=== PATIENT | female | born 1945 | race Caucasian/White ===

== ENCOUNTER 2021-09-06 13:49 | Emergency (ER) | payer MEDICARE, BC, SELFPAY ==
[2021-09-06 14:06] VITALS: BP 100/66; PULSE 114; RESP 18; TEMP 37.1; O2SAT 96; BMI 24.5
--- NOTE | 2021-09-06 14:34 | CT_ITS ---
Final Report Patient: CATE PALM Facility:?[facility] Patient ID:?[id number] Site Patient ID:?[id number]. Site :?[id number] Study:?CT Abdomen/Pelvis W/ISOVUE 370 65CC-09/06/2021 4:18:06 PM Ordering Physician:Ritika Love Final Report: INDICATION: Suspected diverticulitis. TECHNIQUE: CT abdomen and pelvis acquired with 65 cc Isovue 370 IV contrast. COMPARISON: None. FINDINGS: Lower chest: Mild bibasilar linear opacities likely atelectasis and/or scarring. coronary artery calcifications. Liver: Unremarkable. Normal in size and attenuation. No suspicious masses. Gallbladder and bile ducts: Status post cholecystectomy. There is intrahepatic biliary ductal dilatation. CBD measuring up to 11 millimeters. Gradual tapering of the CBD to the ampulla.. Pancreas: Unremarkable. No mass or inflammation. Prominence of the main pancreatic duct is noted. Spleen: Unremarkable. Normal in size. No masses. Adrenal glands: Unremarkable. No nodules. Kidneys: Unremarkable. No suspicious masses, stones, or hydronephrosis. GI tract: Severe diverticulosis of the sigmoid colon. No significant surrounding inflammatory changes to suspect diverticulitis. Normal appendix. Small hiatal hernia. Vasculature: Abdominal aorta is normal in caliber. Mesenteric arteries are patent. Lymph nodes: No lymphadenopathy. Peritoneum/Abdominal Wall: Unremarkable. No sign of mass or infiltration. No free air or significant free fluid. Pelvis: Unremarkable. Bones: Unremarkable for age. IMPRESSION: 1. Severe colonic diverticulosis without overt evidence of diverticulitis. 2. Mild increase in intrahepatic biliary ductal dilatation and mild prominence of the main pancreatic duct, increased since the prior exam. This may be related to reservoir effect in the setting of cholecystectomy, however given the mild increase since the prior exam recommend 3 to 6-month ultrasound of the abdomen to ensure stability. Please note that all CT scans at this facility use dose modulation, iterative reconstruction, and/or weight-based dosing when appropriate to reduce radiation dose to as low as reasonably achievable. Dictated by Aaliyah Platt MD @ 09/06/2021 5:19:23 PM (Electronic Signature)
[2021-09-06] MEDS: 0.9 % SODIUM CHLORIDE 1000 ml 1,000 ML 6000 ML IV (14:38)
--- NOTE | 2021-09-06 14:38 | ED.GENADULT ---
HPI - General Adult General Time Seen by Provider: 14:37 Date Seen: 09/06/21 Chief complaint: Abdominal Pain Stated complaint: Diverticulitis/fever/body pain Time Seen by Provider: 09/06/21 14:04 Source: patient Mode of arrival: ambulatory Limitations: no limitations History of Present Illness HPI narrative: Patient is a 76 year white female was seen yesterday after 3 day history of left-sided lower and lateral abdominal pain. The patient has had diverticulitis times about 3 in the past, she was given what sounds like oral Augmentin but continues to have discomfort in her left lateral quadrant and she felt chilled and not well this morning. She reports more pain in her abdomen in the left lateral side, and left lower quadrant. She states this feels similar to diverticulitis she had the past. No rigors, no chest pain, no shortness of breath, no leg swelling or edema, took a COVID test recently that was negative. No rigors as mention, no dysuria, or hematuria. Reports the pain is moderate in the left lateral and lower quadrant, and she notices some tenderness to palpation. Has not vomited Related Data Home Medications Medication Instructions Recorded Confirmed albuterol sulfate 90 mcg/actuation INHALATION 09/06/21 aerosol inhaler amoxicillin 875 mg-potassium tab 09/06/21 clavulanate 125 mg tablet lisinopril 10 tab 09/06/21 mg-hydrochlorothiazide 12.5 mg tablet multivitamin 1 tab PO DAILY 09/06/21 09/06/21 simvastatin 20 mg tablet mg 09/06/21 Previous Rx's Medication Instructions Recorded tramadol 100 mg tablet 100 mg PO Q6H PRN #20 tab 09/06/21 Allergies Allergy/AdvReac Type Severity Reaction Status Date / Time Sulfa (Sulfonamide AdvReac Intermediate Nausea Verified 09/06/21 14:03 Antibiotics) Review of Systems Status of ROS: Reports: 10 or more systems reviewed and unremarkable except as noted in History and below PFSH PFSH Social History Smoking Status: Never smoker Do you use any of these nicotine containing products: None Second hand tobacco smoke exposure: No How often do you have a drink containing alcohol: never AUDIT-C Alcohol total score: 0 Non-prescribed substance use: denies use service: No Exam Narrative: Exam Narrative: Objective: Vital signs unremarkable HEENT is unremarkable, no scleral icterus Chest is clear Pulses regular Abdomen: Bowel sounds present normoactive, mild left-sided voluntary guarding, no palpable masses, no rebound. Extremities without edema Skin is unremarkable warm and dry Neurologic is nonfocal in upper lower extremities Mental status appropriate Const: Vital Signs, click to edit/add: Vital Signs - 24 hr 09/06/21 14:06 09/06/21 15:42 09/06/21 16:30 Temperature 98.7 F Pulse Rate [Right Pulse Oximeter] 114 H 91 92 Respiratory Rate 18 18 18 Blood Pressure [Ri ght Upper Arm] 100/66 136/52 L 112/42 L Pulse Oximetry 96 96 100 09/06/21 17:48 Temperature Pulse Rate [Right Pulse Oximeter] 90 Respiratory Rate 20 Blood Pressure [Ri ght Upper Arm] 119/51 L Pulse Oximetry 98 Course Course Hospital Course: Because of the patient's concerning history of diverticulitis and her worsening symptoms failing outpatient treatment, would confirm with a CT scanner abdomen pelvis with IV contrast, would also give her IV fluid, IV pain medication for morphine, IV Zosyn. Will check laboratory studies as well Vital Signs Vital signs: Initial Vital Signs Temperature 98.7 F 09/06/21 14:06 Temperature Source Temporal Artery Scan 09/06/21 14:06 Pulse Rate 114 H 09/06/21 14:06 Respiratory Rate 18 09/06/21 14:06 Blood Pressure 100/66 09/06/21 14:06 Blood Pressure Mean 77 09/06/21 14:06 Blood Pressure Position Sitting 09/06/21 14:06 Pulse Oximetry 96 09/06/21 14:06 Oxygen Delivery Method 09/06/21 14:06 Vital Signs Temperature 98.7 F 09/06/21 14:06 Pulse Rate 114 H 09/06/21 14:06 Respiratory Rate 18 09/06/21 14:06 Blood Pressure 100/66 09/06/21 14:06 Pulse Oximetry 96 09/06/21 14:06 Temperature 98.7 F 09/06/21 14:06 Pulse Rate 90 09/06/21 17:48 Respiratory Rate 20 09/06/21 17:48 Blood Pressure 119/51 L 09/06/21 17:48 Pulse Oximetry 98 09/06/21 17:48 Medical Decision Making [facility] Narrative Medical decision making narrative: The patient has left-sided abdominal pain it is largely improved, I suspect this may be partially treated diverticulitis. But her white count is just slightly elevated, her CT looks okay other than slightly elevated or dilated pancreatic and gallbladder docs, which could be related to her cholecystectomy, but radiology recommended repeat about 6 months. Will have her complete her Augmentin, will fax in tramadol for her. Will have her update her regular doctor within the next day or 2. Light activity fluids, rest, return if problems or concerns or worsening thanks Lab Data Labs: Lab Results 09/06/21 09/06/21 Range/Units 14:30 14:30 WBC 12.10 H (4.50-11.00) K/uL RBC 4.02 (4.00-5.20) m/uL Hgb 13.7 (12.0-16.0) gm/dL Hct 40.0 (33.0-51.0) % MCV 100 (80-100) fL MCH 34 (26-34) pg MCHC 34 (32-36) gm/dL RDW Coeff of Yanni 11.7 (11.5-15.5) % Plt Count 237 (140-440) K/uL Neut % (Auto) 82.4 H (42.0-72.0) % Lymph % (Auto) 8.7 L (20-44) % Sanders % (Auto) 8.2 (0.0-11.0) % Eos % (Auto) 0.2 (0.0-7.0) % Baso % (Auto) 0.2 (0.0-3.0) % Neut # (Auto) 10.00 H (1.7-7.0) K/uL Lymph # (Auto) 1.10 (0.90-2.90) K/uL Sanders # (Auto) 1.00 H (0.00-0.90) K/UL Eos # (Auto) 0.00 (0.00-0.50) K/uL Baso # (Auto) 0.00 (0.00-0.30) K/uL Abs Immat Gran (auto) 0.04 (0.00-0.30) K/uL Sodium 131 L (135-149) mmol/L Potassium 3.7 (3.6-5.1) mmol/L Chloride 99 (96-114) mmol/L Carbon Dioxide 21 (20-32) mmol/L BUN 13 (7-30) mg/dL Creatinine 1.0 (0.5-1.5) mg/dL Estimated Creat Clear 37.26 Glucose 122 H (60-115) mg/dL Calcium 9.1 (8.4-10.6) mg/dL Total Bilirubin 1.5 (0.1-1.5) mg/dL Direct Bilirubin 0.3 (0.0-0.5) mg/dL AST 49 H (12-35) U/L ALT 33 (4-35) U/L Alkaline Phosphatase 89 (40-150) U/L C-Reactive Protein 2.8 H (0.5-1.0) mg/dL Total Protein 7.2 (6.0-8.3) g/dL Albumin 4.5 (3.3-5.0) g/dL Discharge Plan Discharge Clinical Impression: Abdominal pain Patient Disposition: Home w/ Parent or Adult Condition: Stable Additional Instructions: Patient is feeling a bit better, her CT scan looks reassuring, although there is some pancreatic duct dilatation the radiologist recommends repeat CT in about 6 months. Ultram as needed for discomfort finish the Augmentin, as she may have partially treated diverticulitis. She will update her primary care provider within the next day or 2, return to the ER sooner problems concerns difficulties. Prescriptions: New tramadol 100 mg tablet 100 mg PO Q6H PRN (Reason: pain) Qty: 20 0RF No Action simvastatin 20 mg tablet 0RF lisinopril-hydrochlorothiazide 10-12.5 mg tablet 0RF Label Comments: TAKE ONE TABLET BY MOUTH ONE TIME DAILY albuterol sulfate 90 mcg/actuation HFA aerosol inhaler INHALATION 0RF Label Comments: INHALE TWO PUFFS BY MOUTH EVERY FOUR HOURS NEEDED FOR WHEEZING amoxicillin-pot clavulanate 875-125 mg tablet 0RF Label Comments: TAKE ONE TABLET BY MOUTH TWICE DAILY multivitamin Tablet 1 tab PO DAILY 0RF Stand Alone Forms: [facility] Info Instructions
[2021-09-06 14:48] LABS: Basophils Percent Auto 0.2 % (0.0-3.0); Eosinophils Percent Auto 0.2 % (0.0-7.0); Hemoglobin* 13.7 gm/dL (12.0-16.0); Immature Granulocytes Abs Auto 0.04 K/uL (0.00-0.30); Lymphocytes Percent Auto 8.7 % (20-44); Mean Corpuscular HGB Conc 34 gm/dL (32-36); Mean Corpuscular Hemoglobin 34 pg (26-34); Mean Corpuscular Volume 100 fL (80-100); Monocytes Percent Auto 8.2 % (0.0-11.0); Neutrophils Percent Auto 82.4 % (42.0-72.0); Platelet Count* 237 K/uL (140-440); RDW Coefficient of Variation % 11.7 % (11.5-15.5); Red Blood Count 4.02 m/uL (4.00-5.20)
[2021-09-06 15:23] LABS: Albumin* 4.5 g/dL (3.3-5.0); Chloride* 99 mmol/L (96-114)
[2021-09-06 15:24] LABS: Potassium* 3.7 mmol/L (3.6-5.1); Sodium* 131 mmol/L (135-149)
[2021-09-06 15:26] LABS: Est. Creatinine Clearance* 37.26; Estimated Glomerular Filt Rate 58.02
[2021-09-06 15:27] LABS: Alkaline Phosphatase* 89 U/L (40-150); Aspartate Amino Transferase* 49 U/L (12-35); Bilirubin Direct* 0.3 mg/dL (0.0-0.5); Bilirubin Total* 1.5 mg/dL (0.1-1.5); Blood Urea Nitrogen* 13 mg/dL (7-30); Calcium* 9.1 mg/dL (8.4-10.6); Carbon Dioxide* 21 mmol/L (20-32); Glucose* 122 mg/dL (60-115); Total Protein* 7.2 g/dL (6.0-8.3)
[2021-09-06 15:29] LABS: C Reactive Protein* 2.8 mg/dL (0.5-1.0)
[2021-09-06] MEDS: ONDANSETRON 2 MG/ML inj 4 MG IVP (15:30)
[2021-09-06] MEDS: MORPHINE 2 MG/ML inj IVP (15:38)
[2021-09-06] MEDS: PIPERACILLIN/TAZOBACTAM 3.375 GM in 0.9 % SODIUM CHLORIDE Mini-bag 100 ML IVPB (15:38)
[2021-09-06 15:42] VITALS: BP 136/52; PULSE 91; RESP 18; O2SAT 96
[2021-09-06 15:43] LABS: Alanine Aminotransferase* 33 U/L (4-35)
[2021-09-06 16:30] VITALS: BP 112/42; PULSE 92; RESP 18; O2SAT 100
[2021-09-06 17:14] LABS: Slide Review Reflex No
[2021-09-06 17:48] VITALS: BP 119/51; PULSE 90; RESP 20; O2SAT 98
== END 2021-09-06 18:00 ==
PROVIDERS: Emergency Provider Family Medicine
DX: R10.32 Left lower quadrant pain (principal); Z87.19 Personal history of other diseases of the digestive system
CPT/HCPCS: 36415; 74177; 80048; 80076; 85025; 86140; 87040; 96365; 96375; 99284; J2270; J2405; J2543; J7030; Q9967

== ENCOUNTER 2022-04-18 12:06 | Outpatient (CLI) | payer MEDICARE, BC, SELFPAY ==
[2022-04-18 12:16] VITALS: BP 122/50; PULSE 87; RESP 16; O2SAT 98
[2022-04-18] MEDS: TETRACAINE 0.5% OPHTH 1 DROP EYE-BOTH ×3 (12:24→13:15)
[2022-04-18] MEDS: BRIMONIDINE TARTRATE 0.2% OPHTH 1 DROP EYE-BOTH ×2 (12:25→13:25)
--- NOTE | 2022-04-18 13:43 | P.OPTPRC_ITS ---
Procedure Note Date of procedure: 04/18/22 Will [facility] bill your pro fee for this procedure?: Yes Procedure Description: SURGEON: Sarah Guy MD PREOPERATIVE DIAGNOSIS: Posterior capsular opacity, right and left eye POSTOPERATIVE DIAGNOSIS: Posterior capsular opacity, right and left eye PROCEDURE: YAG laser capsulotomy, both eyes ANESTHESIA: Topical. ESTIMATED BLOOD LOSS: None PATHOLOGY SPECIMEN: None COMPLICATIONS: None INDICATIONS: See consult note for details. The risks, benefits and alternatives of the procedure were explained to the patient, who elected to proceed and signed informed consent to do so. PROCEDURE: The patient was brought to the pre-holding area where the right and left eyes were identified as the operative eyes. I placed my initials above the eyes. The following was given in both eyes: The patient received 2 sets of 1 drop of 0.5% tetracaine and 1 drop of 1% tropicamide. They also received 1 drop of 0.2% brimonidine. They received 1 drop of 0.5% tetracaine immediately prior to bringing them back for the procedure. The patient was then brought to the procedure room where the right and left eyes were again identified as the operative eyes. A YAG Garfield capsulotomy lens was placed on the right eye. The laser was administered using a total number of 10 shots with an energy of 2.4 mJ per shot for a total energy of 24 mJ. The patient tolerated the procedure well. A YAG Garfield capsulotomy lens was placed on the left eye. The laser was administered using a total number of 9 shots with an energy of 2.4 mJ per shot for a total energy of 22 mJ. The patient tolerated the procedure well. DISPOSITION: The patient was taken back to the pre-holding area and given 1 drop of 0.2% brimonidine in both eyes. They were discharged to home in stable condition. The patient [facility], including dramatic loss of vision, severe pain in the eye or eyebrow region, nausea, or vomiting. The patient was instructed to use the 0.2% brimonidine 1 drop 2 times a day in both eyes for 1 week. The patient will follow up in the clinic in 1-2 weeks. Surgeon: Sarah Guy MD
== END 2022-04-18 13:26 | disposition home or self-care (01) ==
LOC: EYE PRC 12:07
PROVIDERS: PCP Physician Assistant; Visit Provider Ophthalmology
DX: H26.9 Unspecified cataract (principal)
CPT/HCPCS: 66821; A9270

== ENCOUNTER 2023-03-24 09:31 | Emergency (ER) | payer MEDICARE, BC, SELFPAY ==
[2023-03-24 09:52] VITALS: BP 149/67; PULSE 64; RESP 17; TEMP 36.3; O2SAT 98; BMI 23.8
[2023-03-24 10:05] VITALS: O2SAT 97
--- NOTE | 2023-03-24 10:06 | CRLHL7_ITS ---
For Patients: As a result of the Century Cures Act, medical imaging exams and procedure reports are released immediately into your electronic medical record. You may view this report before your referring provider. If you have questions, please contact your health care provider. Indication: Shortness of breath Comparison: None available. Technique: PA and lateral views of the chest Findings: Hyperinflation and mildly increased interstitial markings without dense consolidation, effusion, or pneumothorax. The cardiac silhouette is mildly prominent. The bony thorax is grossly intact. Impression: Mild chronic interstitial changes without evidence of dense consolidation. Dictated by Juan Carlos Lomeli MD @ 03/24/2023 10:25:46 AM (Electronically Signed)
--- NOTE | 2023-03-24 10:07 | ED.GENADULT ---
HPI - General Adult General Chief complaint: Chest Pain Stated complaint: Chest pain Time Seen by Provider: 03/24/23 09:39 Source: patient Mode of arrival: ambulatory Limitations: no limitations History of Present Illness HPI narrative: Patient is a 78-year-old female coming in today complaining of chest pain. She states that approximately 5 hours ago she started having episodes of chest pain located under the left breast. Episodes come and go and lasts seconds at a time. She can not tell me how many episodes have occurred this morning. The pain is sharp. She is not short of breath or diaphoretic. She denies any fevers or chills. No recent illness. No nausea or vomiting. Pain is not associated with physical activity. She states that she had a piece of toast today and this did not seem to bother her pain, or make it come more frequently. Right now she is asymptomatic. States that the last episode of pain was perhaps 15 minutes ago. Patient was having palpitations and tachycardia-she is currently undergoing workup for that. She has a 30 day Holter monitor in place and she was recently started on metoprolol. She states that her pulse has been much better, staying in the 60s. She also has a history of her chronic cough which has been unchanged. Related Data Home Medications Medication Instructions Recorded Confirmed albuterol sulfate 90 mcg/actuation inhalation 09/06/21 03/20/22 aerosol inhaler multivitamin 1 tab PO DAILY 09/06/21 03/20/22 simvastatin 20 mg tablet mg 09/06/21 03/20/22 losartan 50 mg tablet 50 mg PO 03/20/22 03/20/22 metoprolol succinate 25 mg 25 mg PO DAILY 03/24/23 03/24/23 tablet,extended release 24 hr Allergies Allergy/AdvReac Type Severity Reaction Status Date / Time Sulfa (Sulfonamide AdvReac Intermediate Nausea Verified 03/20/22 10:16 Antibiotics) Review of Systems Status of ROS: Reports: 10 or more systems reviewed and unremarkable except as noted in History and below [facility] Medical History Diverticulitis ?K57.92 - Diverticulitis of intestine, part unspecified, without perforation or abscess without bleeding (ICD-10) Chronic cough ?R05.3 - Chronic cough (ICD-10) Polymyalgia rheumatica ?M35.3 - Polymyalgia rheumatica (ICD-10) Sleep apnea ?G47.30 - Sleep apnea, unspecified (ICD-10) Surgical History History of breast biopsy ?Z98.890 - Other specified postprocedural states (ICD-10) History of trigger finger ?Z87.39 - Personal history of other diseases of the musculoskeletal system and connective tissue (ICD-10) History of carpal tunnel release ?Z98.890 - Other specified postprocedural states (ICD-10) History of laparoscopic cholecystectomy ?Z90.49 - Acquired absence of other specified parts of digestive tract (ICD-10) Social History Smoking Status: Never smoker Do you use any of these nicotine containing products: None Second hand tobacco smoke exposure: No How often do you have a drink containing alcohol: never AUDIT-C Alcohol total score: 0 Non-prescribed substance use: denies use service: No Exam Narrative: Exam Narrative: Well-nourished well-developed patient in no acute distress. Alert and oriented. Answers questions appropriately. Mood and affect are appropriate. Thoughts are goal oriented and rational. No tangential or magical thinking noted. Patient speaks in full sentences without needing to catch her breath. She does not appear ill or toxic. HEENT: Normocephalic atraumatic. Pupils are equally round reactive to light. Extraocular muscles are intact. Conjunctivae are moist without any icterus noted. Moist mucous membranes. Neck is soft. Cardiovascular: Heart is regular rate and rhythm S1 and S2 are present without any murmurs. Lungs: Clear to auscultation bilaterally no wheezes rhonchi or rales are appreciated. Patient takes deep breaths without any discomfort. Abdomen: Soft and nontender nondistended with normal bowel sounds. No guarding or rebound. No masses or organomegaly appreciated. Extremities: Bilateral lower extremities are without edema. Normal DP and PT pulses. Skin: Well perfused without any obvious rashes. Const: Vital Signs, click to edit/add: Vital Signs - 24 hr 03/24/23 09:52 03/24/23 10:05 03/24/23 11:05 Temperature 97.3 F L Pulse Rate [Pulse Oximeter] 64 Respiratory Rate 17 Blood Pressure [Ri ght Upper Arm] 149/67 H 112/53 L Pulse Oximetry 98 97 Oxygen Delivery Me thod Room Air Room Air 03/24/23 11:32 Temperature Pulse Rate [Pulse Oximeter] 92 Respiratory Rate Blood Pressure [Ri ght Upper Arm] Pulse Oximetry 96 Oxygen Delivery Me thod Room Air Course Course ED Course: EKG, read by me, shows normal sinus rhythm with a pulse of 64. Chest x-ray, read by me, shows no acute pathology. Initial point of care troponin is within normal limits. Repeat troponin was unchanged. Remainder of lab work was unremarkable. Vital Signs Vital signs: Initial Vital Signs Temperature 97.3 F L 03/24/23 09:52 Temperature Source Temporal Artery Scan 03/24/23 09:52 Pulse Rate 64 03/24/23 09:52 Respiratory Rate 17 03/24/23 09:52 Blood Pressure 149/67 H 03/24/23 09:52 Blood Pressure Mean 94 03/24/23 09:52 Pulse Oximetry 98 03/24/23 09:52 Oxygen Delivery Method Room Air 03/24/23 09:52 Vital Signs Temperature 97.3 F L 03/24/23 09:52 Pulse Rate 64 03/24/23 09:52 Respiratory Rate 17 03/24/23 09:52 Blood Pressure 149/67 H 03/24/23 09:52 Pulse Oximetry 98 03/24/23 09:52 Oxygen Delivery Method Room Air 03/24/23 09:52 Temperature 97.3 F L 03/24/23 09:52 Pulse Rate 92 03/24/23 11:32 Respiratory Rate 17 03/24/23 09:52 Blood Pressure 112/53 L 03/24/23 11:05 Pulse Oximetry 96 03/24/23 11:32 Oxygen Delivery Method Room Air 03/24/23 11:32 Medical Decision Making MDM Narrative Medical decision making narrative: 78-year-old female with atypical chest pain of unclear etiology. We discussed symptomatic treatment reasons to return to the ER. Patient was in agreement and had no other questions. Lab Data Lab results reviewed: Yes I reviewed the patient's lab results Labs: Lab Results 03/24/23 03/24/23 03/24/23 Range/Units 10:06 10:12 11:30 WBC 9.62 (4.50-11.00) K/uL RBC 3.93 L (4.00-5.20) m/uL Hgb 13.7 (12.0-16.0) gm/dL Hct 41.8 (33.0-51.0) % MCV 106 H (80-100) fL MCH 35 H (26-34) pg MCHC 33 (32-36) gm/dL RDW Coeff of Yanni 12.1 (11.5-15.5) % Plt Count 274 (140-440) K/uL Neut % (Auto) 66.8 (42.0-72.0) % Lymph % (Auto) 20.2 (20-44) % Park % (Auto) 9.5 (0.0-11.0) % Eos % (Auto) 2.6 (0.0-7.0) % Baso % (Auto) 0.5 (0.0-3.0) % Neut # (Auto) 6.43 (1.7-7.0) K/uL Lymph # (Auto) 1.94 (0.90-2.90) K/uL Park # (Auto) 0.90 (0.00-0.90) K/UL Eos # (Auto) 0.25 (0.00-0.50) K/uL Baso # (Auto) 0.05 (0.00-0.30) K/uL Abs Immat Gran (auto) 0.04 (0.00-0.30) K/uL Imm/Tot Granulo (auto) 0.4 % Sodium 140 (135-149) mmol/L Potassium 4.2 (3.6-5.1) mmol/L Chloride 108 (96-114) mmol/L Carbon Dioxide 25 (20-32) mmol/L Anion Gap 7 (7-15) mEq/L BUN 19 (7-30) mg/dL Creatinine 1.0 (0.5-1.5) mg/dL Estimated Creat Clear 36.08 Estimated GFR 57 ml/min Glucose 105 (60-115) mg/dL Calcium 9.2 (8.4-10.6) mg/dL Troponin I < 0.01 L (0.01-0.04) ng/mL C-Reactive Protein < 0.5 L (0.5-1.0) mg/dL Lipase 188 (23-300) U/L POC Troponin I 0.00 L 0.00 L (0.01-0.04) ng/ml Imaging Data Chest x-ray: Attestation: I have reviewed the pertinent imaging results. Radiologist's impression: PA and lateral views of the chest Findings: Hyperinflation and mildly increased interstitial markings without dense consolidation, effusion, or pneumothorax. The cardiac silhouette is mildly prominent. The bony thorax is grossly intact. Impression: Mild chronic interstitial changes without evidence of dense consolidation. ECG Data Attestation: I personally reviewed and interpreted this ECG as follows: Discharge Plan Discharge Clinical Impression: Atypical chest pain Patient Disposition: Home, Self-Care Condition: Stable Additional Instructions: Is unclear what is causing her chest pain at this time. Does not appear to be related to your heart or lungs. All of your workup today was normal. If you feel that the pain is coming more frequently and lasting longer, return to the ER for re-evaluation. Otherwise, follow-up with your primary care provider as needed. Prescriptions: No Action losartan 50 mg tablet 50 mg PO simvastatin 20 mg tablet albuterol sulfate 90 mcg/actuation HFA aerosol inhaler INHALATION Patient Comments: INHALE TWO PUFFS BY MOUTH EVERY FOUR HOURS NEEDED FOR WHEEZING multivitamin Tablet 1 tab PO DAILY metoprolol succinate 25 mg tablet extended release 24 hr 25 mg PO DAILY Follow Up/Referrals: Sunday Garay PA-C [Primary Care Provider] - Stand Alone Forms: [facility] Info Instructions
[2023-03-24 10:18] LABS: Basophils Absolute Auto 0.05 K/uL (0.00-0.30); Basophils Percent Auto 0.5 % (0.0-3.0); Eosinophils Absolute Auto 0.25 K/uL (0.00-0.50); Eosinophils Percent Auto 2.6 % (0.0-7.0); Hematocrit 41.8 % (33.0-51.0); Hemoglobin* 13.7 gm/dL (12.0-16.0); Immature Granulocytes Abs Auto 0.04 K/uL (0.00-0.30); Immature Granulocytes Pct Auto 0.4 %; Lymphocytes Absolute Auto 1.94 K/uL (0.90-2.90); Lymphocytes Percent Auto 20.2 % (20-44); Mean Corpuscular HGB Conc 33 gm/dL (32-36); Mean Corpuscular Hemoglobin 35 pg (26-34); Mean Corpuscular Volume 106 fL (80-100); Monocytes Percent Auto 9.5 % (0.0-11.0); Neutrophils Absolute Auto 6.43 K/uL (1.7-7.0); Neutrophils Percent Auto 66.8 % (42.0-72.0); Platelet Count* 274 K/uL (140-440); RDW Coefficient of Variation % 12.1 % (11.5-15.5); Red Blood Count 3.93 m/uL (4.00-5.20); White Blood Count* 9.62 K/uL (4.50-11.00)
[2023-03-24 10:27] LABS: Slide Review Reflex No
[2023-03-24 10:31] LABS: Chloride* 108 mmol/L (96-114); Potassium* 4.2 mmol/L (3.6-5.1); Sodium* 140 mmol/L (135-149)
[2023-03-24 10:34] LABS: Anion Gap 7 mEq/L (7-15); Blood Urea Nitrogen* 19 mg/dL (7-30); Carbon Dioxide* 25 mmol/L (20-32); Est. Creatinine Clearance* 36.08; Estimated Glomerular Filt Rate 57 ml/min; Lipase* 188 U/L (23-300)
[2023-03-24 10:35] LABS: Calcium* 9.2 mg/dL (8.4-10.6); Glucose* 105 mg/dL (60-115)
[2023-03-24 11:01] LABS: C Reactive Protein* < 0.5 mg/dL (0.5-1.0); Troponin I* < 0.01 ng/mL (0.01-0.04)
[2023-03-24 11:05] VITALS: BP 112/53
[2023-03-24 11:32] VITALS: PULSE 92; O2SAT 96
== END 2023-03-24 11:59 | disposition home or self-care (01) ==
PROVIDERS: Emergency Provider Family Medicine; PCP Physician Assistant
DX: R07.9 Chest pain, unspecified (principal)
CPT/HCPCS: 36415; 71046; 80048; 83690; 84484; 85025; 86140; 93005; 94761; 99284; 99285

== ENCOUNTER 2023-09-19 09:36 | Emergency (ER) | payer MEDICARE, BC, SELFPAY ==
[2023-09-19 09:39] VITALS: BP 167/71; PULSE 65; RESP 18; TEMP 36.1; O2SAT 98; BMI 26.1
[2023-09-19 10:05] LABS: Basophils Absolute Auto 0.04 K/uL (0.00-0.30); Basophils Percent Auto 0.5 % (0.0-3.0); Eosinophils Absolute Auto 0.11 K/uL (0.00-0.50); Eosinophils Percent Auto 1.4 % (0.0-7.0); Hematocrit 43.1 % (33.0-51.0); Immature Granulocytes Abs Auto 0.03 K/uL (0.00-0.30); Immature Granulocytes Pct Auto 0.4 %; Lymphocytes Absolute Auto 1.94 K/uL (0.90-2.90); Lymphocytes Percent Auto 24.4 % (20-44); Mean Corpuscular HGB Conc 33 gm/dL (32-36); Mean Corpuscular Hemoglobin 34 pg (26-34); Mean Corpuscular Volume 103 fL (80-100); Monocytes Percent Auto 9.8 % (0.0-11.0); Neutrophils Absolute Auto 5.06 K/uL (1.7-7.0); Neutrophils Percent Auto 63.5 % (42.0-72.0); Platelet Count* 240 K/uL (140-440); RDW Coefficient of Variation % 12.2 % (11.5-15.5); Red Blood Count 4.17 m/uL (4.00-5.20); White Blood Count* 7.96 K/uL (4.50-11.00)
[2023-09-19 10:19] LABS: Chloride* 104 mmol/L (96-114); Potassium* 4.1 mmol/L (3.6-5.1); Sodium* 138 mmol/L (135-149)
[2023-09-19 10:20] LABS: Slide Review Reflex No
[2023-09-19 10:22] LABS: Anion Gap 8 mEq/L (7-15); Blood Urea Nitrogen* 20 mg/dL (7-30); Carbon Dioxide* 26 mmol/L (20-32); Est. Creatinine Clearance* 34.42; Estimated Glomerular Filt Rate 57 ml/min; Glucose* 114 mg/dL (60-115)
[2023-09-19 10:23] LABS: Calcium* 9.6 mg/dL (8.4-10.6)
[2023-09-19 10:35] LABS: Troponin I* < 0.01 ng/mL (0.01-0.04)
--- NOTE | 2023-09-19 10:52 | ED_ITS ---
HPI - General Adult General Date Seen: 09/19/23 Chief complaint: Chest Pain Stated complaint: Chest pain Time Seen by Provider: 09/19/23 10:51 History of Present Illness HPI narrative: 78-year-old female with past medical history of hypertension , PMR, sleep apnea, and presenting to the ER today with left-sided chest pain, worse with inspiration that began yesterday. She also notes that she has had about a 10 lb weight gain, dating back 3 or 4 months. Per medical record she was seen in the ER in March for chest pain. Workup showed normal CBC, normal BMP, negative troponin. Chest x-ray showed mild chronic interstitial changes. She reports that she has had symptoms of left upper chest pain that is only present with breathing or deep breathing, that began yesterday. She is not having any substernal pain. No pain through to her back or down her arm or up to her jaw. No other symptoms. No nausea. No palpitations. No dizziness. She is not short of breath. She has not had any recent coughing. No fever. No swelling in her legs. No recent travel or immobilization. Related Data Home Medications ?Medication ?Instructions ?Recorded ?Confirmed albuterol sulfate 90 mcg/actuation 1 puff inhalation Q4H PRN 09/06/21 09/19/23 aerosol inhaler multivitamin 1 tab PO DAILY 09/06/21 09/19/23 simvastatin 20 mg tablet 20 mg PO DAILY 09/06/21 09/19/23 losartan 50 mg tablet 50 mg PO DAILY 03/20/22 09/19/23 metoprolol succinate 25 mg 25 mg PO DAILY 03/24/23 09/19/23 tablet,extended release 24 hr Allergies Allergy/AdvReac Type Severity Reaction Status Date / Time Sulfa (Sulfonamide AdvReac Intermediate Nausea Verified 09/19/23 09:44 Antibiotics) [facility] Medical History Diverticulitis ?K57.92 - Diverticulitis of intestine, part unspecified, without perforation or abscess without bleeding (ICD-10) Chronic cough ?R05.3 - Chronic cough (ICD-10) Polymyalgia rheumatica ?M35.3 - Polymyalgia rheumatica (ICD-10) Sleep apnea ?G47.30 - Sleep apnea, unspecified (ICD-10) Surgical History History of breast biopsy ?Z98.890 - Other specified postprocedural states (ICD-10) History of trigger finger ?Z87.39 - Personal history of other diseases of the musculoskeletal system and connective tissue (ICD-10) History of carpal tunnel release ?Z98.890 - Other specified postprocedural states (ICD-10) History of laparoscopic cholecystectomy ?Z90.49 - Acquired absence of other specified parts of digestive tract (ICD- 10) Social History Smoking Status: Never smoker Do you use any of these nicotine containing products: None Second hand tobacco smoke exposure: No How often do you have a drink containing alcohol: never AUDIT-C Alcohol total score: 0 Non-prescribed substance use: denies use service: No Exam Narrative: Exam Narrative: Constitutional: Appears well-developed and well-nourished. Alert. Conversant. Non toxic. HENT: Head: Atraumatic. Nose: Nose normal. Mouth/Throat: Oral mucosa is clear and moist. no trismus. Pharynx normal. Tonsils symmetric. No tonsillar enlargement, erythema, or exudate. Eyes: Conjunctivae normal. EOM normal. Pupils equal, round, and reactive to light. No scleral icterus. Neck: Normal range of motion. Neck supple. No tracheal deviation present. No JVD Cardiovascular: Normal rate, regular rhythm. No gallop. No friction rub. No murmur heard. Symmetric radial and posterior tibial artery artery pulses Pulmonary/Chest: Effort normal. No stridor. No respiratory distress. No wheezes. No rales. No rhonchi . No tenderness. Abdominal: Soft. No distension. No mass. No tenderness. No rebound. No guarding. Musculoskeletal: RUE: Normal range of motion. No tenderness. No deformity LUE: Normal range of motion. No tenderness. No deformity RLE: Normal range of motion. No edema. No tenderness. No deformity LLE: Normal range of motion. No edema. No tenderness. No deformity Neurological: Alert and oriented to person, place, and time. Normal strength. CN II-VII intact. No sensory deficit. GCS eye subscore is 4. GCS verbal subscore is 5. GCS motor subscore is 6. Normal coordination Skin: Skin is warm and dry. No rash noted. No pallor. Normal capillary refill. Psychiatric: Normal mood. Normal affect. Const: Vital Signs, click to edit/add: Vital Signs - 24 hr 09/19/23 09:39 09/19/23 14:33 Temperature 96.9 F L Pulse Rate [Pulse Oximeter] 65 66 Respiratory Rate 18 17 Blood Pressure [Ri ght Upper Arm] 167/71 H 141/65 H Pulse Oximetry 98 99 Oxygen Delivery Me thod Room Air Room Air Course Vital Signs Vital signs: Initial Vital Signs Temperature 96.9 F L 09/19/23 09:39 Temperature Source Temporal Artery Scan 09/19/23 09:39 Pulse Rate 65 09/19/23 09:39 Respiratory Rate 18 09/19/23 09:39 Blood Pressure 167/71 H 09/19/23 09:39 Blood Pressure Mean 103 09/19/23 09:39 Blood Pressure Position Sitting 09/19/23 09:39 Pulse Oximetry 98 09/19/23 09:39 Oxygen Delivery Method Room Air 09/19/23 09:39 Vital Signs Temperature 96.9 F L 09/19/23 09:39 Pulse Rate 65 09/19/23 09:39 Respiratory Rate 18 09/19/23 09:39 Blood Pressure 167/71 H 09/19/23 09:39 Pulse Oximetry 98 09/19/23 09:39 Oxygen Delivery Method Room Air 09/19/23 09:39 Temperature 96.9 F L 09/19/23 09:39 Pulse Rate 66 09/19/23 14:33 Respiratory Rate 17 09/19/23 14:33 Blood Pressure 141/65 H 09/19/23 14:33 Pulse Oximetry 99 09/19/23 14:33 Oxygen Delivery Method Room Air 09/19/23 14:33 Medical Decision Making MDM Narrative Medical decision making narrative: This patient presents to the ER today for evaluation of chest pain[]. Differential was broad. No evidence of palpitations, syncope or other cardiac dysrhythmia. We considered possible ACS, however workup with EKG and troponin is negative.Given time since onset of symptoms, I do not think the patient needs to be admitted for further sets of enzymes. EKG shows no evidence for pericarditis. Clinical presentation not suggestive of myocarditis. Chest x-ray shows no evidence for pneumonia, pneumothorax, pulmonary edema, pleural effusion, rib fracture, cardiomegaly. Mediastinum is normal on the x-ray. The patient has no ripping or tearing pain through to the back and has symmetric pulses on exam, no other acute neuro findings so I doubt aortic dissection. Risk of radiation and contrast exposure would outweigh the benefit of CT angiogram. We considered PE for this patient with her pleuritic left lateral chest wall pain. Overall be low risk given her normal oxygen, absence of tachycardia, absence of leg swellings or signs of DVT, no recent travel. However she is not ?0? risk. Screening D-dimer is obtained and is normal. At this point the risk of chronic test arthropathy and radiation would outweigh the benefit of a CT PA. No wheezing or bronchospasm to suggest COPD/asthma. No signs of chest wall cellulitis, shingles, injury. She does have a history of lymph nodes affecting her left axilla with previous biopsy. No signs of any infection in that area and no palpable new masses to suggest abscess or lymphadenitis or hidradenitis. With reasonable clinical confidence, I think the patient is safe for outpatient follow up. Discussed return precautions. Questions answered. Patient voices comfort with the plan. Lab Data Labs: Lab Results 09/19/23 Range/Units 09:45 WBC 7.96 (4.50-11.00) K/uL RBC 4.17 (4.00-5.20) m/uL Hgb 14.0 (12.0-16.0) gm/dL Hct 43.1 (33.0-51.0) % MCV 103 H (80-100) fL MCH 34 (26-34) pg MCHC 33 (32-36) gm/dL RDW Coeff of Yanni 12.2 (11.5-15.5) % Plt Count 240 (140-440) K/uL Neut % (Auto) 63.5 (42.0-72.0) % Lymph % (Auto) 24.4 (20-44) % [place] % (Auto) 9.8 (0.0-11.0) % Eos % (Auto) 1.4 (0.0-7.0) % Baso % (Auto) 0.5 (0.0-3.0) % Neut # (Auto) 5.06 (1.7-7.0) K/uL Lymph # (Auto) 1.94 (0.90-2.90) K/uL [place] # (Auto) 0.80 (0.00-0.90) K/UL Eos # (Auto) 0.11 (0.00-0.50) K/uL Baso # (Auto) 0.04 (0.00-0.30) K/uL Abs Immat Gran (auto) 0.03 (0.00-0.30) K/uL Imm/Tot Granulo (auto) 0.4 % D-Dimer Quant (PE/DVT) 0.39 (0.00-0.50) ug/ml Sodium 138 (135-149) mmol/L Potassium 4.1 (3.6-5.1) mmol/L Chloride 104 (96-114) mmol/L Carbon Dioxide 26 (20-32) mmol/L Anion Gap 8 (7-15) mEq/L BUN 20 (7-30) mg/dL Creatinine 1.0 (0.5-1.5) mg/dL Estimated Creat Clear 34.42 Estimated GFR 57 ml/min Glucose 114 (60-115) mg/dL Calcium 9.6 (8.4-10.6) mg/dL Troponin I < 0.01 L (0.01-0.04) ng/mL Imaging Data Chest x-ray: Attestation: I have reviewed the pertinent imaging results. Radiologist's impression: Impression: No acute cardiopulmonary disease. ECG Data Interpretation: Normal sinus rhythm with short PA Rate: 80 PA: Use 106 QRS axis: Normal ST segment/T wave: No ST segment elevation or depression. QTc: 456 Discharge Plan Discharge Clinical Impression: Chest pain Patient Disposition: Home, Self-Care Condition: Stable Instructions: Chest Pain (DC) Additional Instructions: As we discussed, right now your workup looks good. The test for your heart and lungs look okay. However we do not know for sure what is causing her chest pain. Please monitor your symptoms carefully and if you have any worsening pain, or if you develop other symptoms such as heart palpitations, shortness of breath, cough, pain down your arm, please come back to the ER right away. If your pain is not completely improved within the next 2-3 days, please recheck with her doctor or come back to the ER for a recheck. Prescriptions: No Action losartan 50 mg tablet 50 mg PO DAILY simvastatin 20 mg tablet 20 mg PO DAILY albuterol sulfate 90 mcg/actuation HFA aerosol inhaler 1 puff INHALATION Q4H PRN Patient Comments: INHALE TWO PUFFS BY MOUTH EVERY FOUR HOURS NEEDED FOR WHEEZING multivitamin Tablet 1 tab PO DAILY metoprolol succinate 25 mg tablet extended release 24 hr 25 mg PO DAILY Follow Up/Referrals: Sunday Garay PA-C [Primary Care Provider] - Stand Alone Forms: [facility] Info Instructions
[2023-09-19 11:37] LABS: D Dimer Quantitative* 0.39 ug/ml (0.00-0.50)
--- NOTE | 2023-09-19 12:46 | CRLHL7_ITS ---
For Patients: As a result of the Century Cures Act, medical imaging exams and procedure reports are released immediately into your electronic medical record. You may view this report before your referring provider. If you have questions, please contact your health care provider. Indication: left upper chest pain Technique: PA and lateral views of the chest. Comparison: None. Findings: Normal cardiomediastinal silhouette. No focal consolidation, pleural effusions, or visualized pneumothorax. Left axillary surgical clips. Moderate multilevel degenerative changes of the visualized spine. Impression: No acute cardiopulmonary disease. Dictated by Yamil Leal MD @ 09/19/2023 1:17:13 PM (Electronically Signed)
[2023-09-19 14:33] VITALS: BP 141/65; PULSE 66; RESP 17; O2SAT 99
== END 2023-09-19 14:35 | disposition home or self-care (01) ==
PROVIDERS: Emergency Provider Emergency Medicine; PCP Physician Assistant
DX: R07.9 Chest pain, unspecified (principal)
CPT/HCPCS: 36415; 71046; 80048; 84484; 85025; 85379; 93005; 99283; 99284; 99285

== ENCOUNTER 2023-12-14 14:44 | Emergency (ER) | payer MEDICARE, BC, SELFPAY ==
[2023-12-14 14:49] VITALS: BP 165/66; PULSE 62; RESP 18; TEMP 36.7; O2SAT 98; BMI 24.9
--- NOTE | 2023-12-14 15:29 | ED_ITS ---
HPI - Nausea/Vomiting/Diarrhea General Chief complaint: Nausea/Vomiting Stated complaint: Covid+, nausea Time Seen by Provider: 12/14/23 15:17 History of Present Illness HPI Narrative: This 78-year-old female comes in reporting nausea with vomiting. She states that this started yesterday. She diagnosed herself with a positive COVID test also. She states that she did have fever yesterday but none today. She reports an occasional cough. Her primary symptom is nausea with episodes of vomiting when she attempts to take food or drink. She arrives here with normal vital signs. Related Data Home Medications ?Medication ?Instructions ?Recorded ?Confirmed albuterol sulfate 90 mcg/actuation 1 puff inhalation Q4H PRN 09/06/21 12/14/23 aerosol inhaler multivitamin 1 tab PO DAILY 09/06/21 09/19/23 losartan 50 mg tablet 50 mg PO DAILY 03/20/22 12/14/23 metoprolol succinate 25 mg 25 mg PO DAILY 03/24/23 12/14/23 tablet,extended release 24 hr rosuvastatin 20 mg tablet 20 mg PO DAILY 12/14/23 12/14/23 Previous Rx's ?Medication ?Instructions ?Recorded ondansetron 4 mg disintegrating 4 mg PO Q6H #15 tabs 12/14/23 tablet Allergies Allergy/AdvReac Type Severity Reaction Status Date / Time Sulfa (Sulfonamide AdvReac Intermediate Nausea Verified 09/19/23 09:44 Antibiotics) Review of Systems Status of ROS: Reports: 10 or more systems reviewed and unremarkable except as noted in History and below Narrative: Constitutional: No fevers, no weight gain or loss. Eyes: No discharge. No vision changes. HENT: No congestion, no sore throat, no ear pain. Cardiovascular: No chest pain, no palpitations. Respiratory: No shortness of breath, no wheezes, no cough. Gastrointestinal: No abdominal pain, no diarrhea. Nausea with vomiting as described above. Genitourinary: No dysuria, no hematuria. Musculoskeletal: Normal range of motion. Skin: No rashes, no pruritis. Neurological: No dizziness, weakness, sensory change, speech change. Endo/Heme/Allergies: No bruising or bleeding. No polydipsia. Pysch: no suicidality, no anxiety, no insomnia. All other systems reviewed and are negative. [facility] Medical History Diverticulitis ?K57.92 - Diverticulitis of intestine, part unspecified, without perforation or abscess without bleeding (ICD-10) Chronic cough ?R05.3 - Chronic cough (ICD-10) Polymyalgia rheumatica ?M35.3 - Polymyalgia rheumatica (ICD-10) Sleep apnea ?G47.30 - Sleep apnea, unspecified (ICD-10) Surgical History History of breast biopsy ?Z98.890 - Other specified postprocedural states (ICD-10) History of trigger finger ?Z87.39 - Personal history of other diseases of the musculoskeletal system and connective tissue (ICD-10) History of carpal tunnel release ?Z98.890 - Other specified postprocedural states (ICD-10) History of laparoscopic cholecystectomy ?Z90.49 - Acquired absence of other specified parts of digestive tract (ICD- 10) Social History Smoking Status: Never smoker Do you use any of these nicotine containing products: None Second hand tobacco smoke exposure: No How often do you have a drink containing alcohol: never AUDIT-C Alcohol total score: 0 Non-prescribed substance use: denies use service: No Exam Narrative: Exam Narrative: Constitutional: Well-developed, well-nourished, no acute distress. HEENT: Normocephalic, atraumatic. Neck: Normal range of motion. Nontender. Supple. Heart: Regular. No murmurs. Normal rate. Intact distal pulses. Lungs: Clear to auscultation. No chest discomfort. No wheezes, rhonchi, or rales. Abdomen: Normal bowel sounds. Nontender. No rebound tenderness. Genitalia: Deferred. Back: No midline tenderness. Normal range of motion. Extremities: Normal range of motion. No injury. Skin: Intact. No rash. Warm. No erythema or pallor. Neurologic: No altered sensation. No weakness. Alert and oriented. Psychiatric: No suicidality. No anxiety or depression. No insomnia. Nursing notes and vitals signs are reviewed. Const: Vital Signs, click to edit/add: Vital Signs - 24 hr 12/14/23 14:49 Temperature 98.0 F Pulse Rate [Right Pulse Oximeter] 62 Respiratory Rate 18 Blood Pressure [Ri ght Upper Arm] 165/66 H Pulse Oximetry 98 Oxygen Delivery Me thod Room Air Course Vital Signs Vital signs: Initial Vital Signs Temperature 98.0 F 12/14/23 14:49 Temperature Source Temporal Artery Scan 12/14/23 14:49 Pulse Rate 62 12/14/23 14:49 Pulse Rhythm Regular 12/14/23 14:49 Pulse Strength 3+ Normal 12/14/23 14:49 Respiratory Rate 18 12/14/23 14:49 Blood Pressure 165/66 H 12/14/23 14:49 Blood Pressure Mean 99 12/14/23 14:49 Blood Pressure Position Sitting 12/14/23 14:49 Pulse Oximetry 98 12/14/23 14:49 Oxygen Delivery Method Room Air 12/14/23 14:49 Vital Signs Temperature 98.0 F 12/14/23 14:49 Pulse Rate 62 12/14/23 14:49 Respiratory Rate 18 12/14/23 14:49 Blood Pressure 165/66 H 12/14/23 14:49 Pulse Oximetry 98 12/14/23 14:49 Oxygen Delivery Method Room Air 12/14/23 14:49 Temperature 98.0 F 12/14/23 14:49 Pulse Rate 62 12/14/23 14:49 Respiratory Rate 18 12/14/23 14:49 Blood Pressure 165/66 H 12/14/23 14:49 Pulse Oximetry 98 12/14/23 14:49 Oxygen Delivery Method Room Air 12/14/23 14:49 MDM - Nausea/Vomiting/Diarrhea MDM Narrative Medical decision making narrative: This patient had a home test positive for COVID and is reporting nausea with v omiting as her primary symptom. She arrives here with normal vital signs. I explained that there is a shortage now of IV fluids but seeing her vital signs being normal it is not mandatory to give her such fluids. She did receive an oral dose of Zofran. I did prescribe more of these tablets for her. This is a satisfactory encounter for her as she is simply hoping for something to help deal with her nausea symptoms. Discharge Plan Discharge Clinical Impression: COVID-19, Nausea & vomiting Patient Disposition: Home, Self-Care Condition: Stable Additional Instructions: Take medication as prescribed. Increase diet and fluids as tolerated. Follow up with MD or return if worsening. Prescriptions: New ondansetron 4 mg tablet,disintegrating 4 mg PO Q6H Qty: 15 0RF No Action losartan 50 mg tablet 50 mg PO DAILY albuterol sulfate 90 mcg/actuation HFA aerosol inhaler 1 puff INHALATION Q4H PRN Patient Comments: INHALE TWO PUFFS BY MOUTH EVERY FOUR HOURS NEEDED FOR WHEEZING multivitamin Tablet 1 tab PO DAILY metoprolol succinate 25 mg tablet extended release 24 hr 25 mg PO DAILY rosuvastatin 20 mg tablet 20 mg PO DAILY Follow Up/Referrals: Sunday Garay PA-C [Primary Care Provider] - Stand Alone Forms: [employer] Info Instructions
[2023-12-14] MEDS: ONDANSETRON ODT 4 MG TAB PO (15:42)
== END 2023-12-14 15:45 | disposition home or self-care (01) ==
LOC: ED 15:35
PROVIDERS: Emergency Provider Emergency Medicine Emergency Medical Services; PCP Physician Assistant
DX: U07.1 COVID-19 (principal); R11.2 Nausea with vomiting, unspecified
CPT/HCPCS: 96374; 99283; 99284; A9270

== ENCOUNTER 2024-08-02 22:15 | Emergency (ER) | payer MEDICARE, BC, SELFPAY ==
--- OUTSIDE RECORDS SUMMARY | 2024-07-01 09:30 | XMS_ITS | Encounter Summary ---
Author Organization [facility] Address [address] [place] [address] Care Team Providers Care Plush Cutter Name Role Phone Sunday Garay P.A.-C. Primary Care Provider Reason for Referral * Outpatient (Routine) - Authorized Specialty Diagnoses / Procedures Referred By Contac t Referred To Contact Diagnoses Pain Shoulder Left Procedures Large Joint Injection: L subacromial bursa Sunday Garay P.A.-C. [address] [place] [address] Phone: tel: fax: [facility] Referral ID Status Reason Start Date Expiration Date V isits Requested Visits Authorized [id number] Authorized 07/01/2024 10/01/2025 1 1 * Outpatient (Routine) - Authorized Specialty Diagnoses / Procedures Referred By Contac t Referred To Contact Family Medicine Sunday Garay P.A.-C. [address] [place] [address] Phone: tel: fax: [facility] Region Referral ID Status Reason Start Date Expiration Date V isits Requested Visits Authorized [id number] Authorized 07/01/2024 12/31/2025 1 1 * Physical Therapy (Routine) - Authorized Specialty Diagnoses / Procedures Referred By Contac t Referred To Contact Diagnoses Pain Shoulder Left Sunday Garay P.A.-C. [address] [place] [address] Phone: tel: fax: Referral ID Status Reason Start Date Expiration Date Visits Requested Visits Authorized [id number] Authorized Patient Preference 07/01/2024 12/31/2025 99 99 * Outpatient (Routine) - Closed Specialty Diagnoses / Procedures Referred By Abigail t Referred To Contact Diagnoses Pain Shoulder Left Procedures DX Shoulder Left 2+ Views Sunday Garay P.A.-C. [address] [place] [address] Phone: tel: fax: [facility] Region Referral ID Status Reason Start Date Expiration Date Visits Re quested Visits Authorized [id number] Closed 07/01/2024 10/01/2025 1 1 Reason for Visit * Reason Comments Shoulder Pain Left arm and shoulde r pain started a couple of weeks ago. Off and on. Tingling of right hand.Blood pressure running high at times. * Appointment Request (Routine) - Closed Specialty Diagnoses / Procedures Referred By Contac t Referred To Contact Family Medicine Referral ID Status Reason Start Date Expiration Date Visits Re quested Visits Authorized [id number] Closed 06/29/2024 09/29/2025 1 1 Encounter Details Date Type Department Care Team (Late st Contact Info) Description 07/01/2024 9:30 AM CDT Office Visit Department of Family Medicine, [facility], in [place], [place] [address] [place] [address] Sunday Garay P.A.-C. [address] [facility] [place] [phone] Hypertension Essential Primary (Primary Dx); Pain Shoulder Left Social History Tobacco Use Types Packs/Day Years Used Date Smoking Tobacco: Former Cigarettes 1 20 0 03/11/1966 - 03/11/1986 Smokeless Tobacco: Never Tobacco Cessation:Counseling Given: Not Answered Alcohol Use Standard Drinks/Week Comments Never 0 (1 standard drink = 0.6 oz pur e alcohol) [facility] Utilities Answer Date Recorded In the past 12 months has e electric, gas, oil, or water company threatened to shut off services in your home? No 12/02/2023 Humiliation, Afraid, Rape, and Kick questionnair e Answer Date Recorded Within the last year, have y ou been afraid of your partner or ex-partner? No 06/30/2022 Within the last year, have y ou been humiliated or emotionally abused in other ways by your partner or ex-partner? No Within the last year, have y ou been kicked, hit, slapped, or otherwise physically hurt by your partner or ex-partner? No 06/30/2022 Within the last year, have y ou been raped or forced to have any kind of sexual activity by your partner or ex-partner? No 06/30/2022 Social Connection and Isolat ion Panel [NHANES] Answer Date Recorded In a typical week, how many times do you talk on the phone with family, friends, or neighbors? More than three times a week 06/30/2022 How often do you get togethe r with friends or relatives? More than three times a week 06/30/2022 How often do you attend chur ch or cheondoism services? More than 4 times per year 06/30/2022 Do you belong to any clubs o r organizations such as adventist groups, unions, fraternal or athletic groups, or school groups? No 06/30/2022 Attends Club or Organization Meetings Not on tim e 06/30/2022 Are you , , di vorced, , never , or living with a partner? 06/30/2022 AUDIT-C Answer Date Recorded Q1: How often do you have a drink containing alc ohol? Never 06/30/2022 Average Number of Drinks Not on file 023 Frequency of Binge Drinking Not on file 06/10 Overall Financial Resource Strain (CARDIA) Answe r Date Recorded How hard is it for you to pa y for the very basics like food, housing, medical care, and heating? Not very hard 06/30/2022 PHQ-2 Answer Date Recorded PHQ-2 Score 1 06/30/2024 [facility] - Occupational Stress Questionnaire Answer Date Recorded Do you feel stress - tense, restless, nervous, or anxious, or unable to sleep at night because your mind is troubled all the time - these days? Only a little 06/30/2022 Exercise Vital Sign Answer Date Recorde d On average, how many days pe r week do you engage in moderate to strenuous exercise (like a brisk walk)? 6 days 07/17/2023 On average, how many minutes do you engage in exercise at this level? 60 min 07/17/2023 Hunger Vital Sign Answer Date Recorded Within the past 12 months, y ou worried that your food would run out before you got the money to buy more. Never true 12/02/19 24 Within the past 12 months, t he food you bought just didn't last and you didn't have money to get more. Never true 12/02/2023 PRAPARE - Transportation Answer Date Re corded In the past 12 months, has l ack of transportation kept you from medical appointments or from getting medications? No 11/10 In the past 12 months, has l ack of transportation kept you from meetings, work, or from getting things needed for daily living? No 12/02/2023 Nutrition Answer Date Recorded On average, how many serving s of fruits and vegetables do you eat per day (serving size is equal to 1 cup or approximately the size of a tennis ball)? 3-5 07/17/2023 Dental Answer Date Recorded Dental: Regular Dentist Yes 05/02/19 21 Employment Answer Date Recorded Employment status Retired 07/17/2023 Housing Stability Answer Date Recorded What is your living situation today? I have a [facility] place to live 12/02/2023 Education Answer Date Recorded What is the highest level of school you have completed or the highest degree you have received? Some college, no degree 11/03/2018 Comments No Sex and Gender Information Value Date Recorded Sex Assigned at Female 10/24/2019 3:29 PM CDT Legal Sex Female 10:41 PM [employer] Gender Identity Female 10/09/2017 9:13 AM CDT Sexual Orientation Straight 10/09/2017 9: 13 AM CDT documented as of this encounter Last Filed Vital Signs Vital Sign Reading Time Taken Comments Blood Pressure 146/71 07/01/2024 9:22 AM CDT Pulse 76 07/01/2024 9:22 AM CDT Temperature 36.1 C (97 F) 07/01/2024 9:16 AM CDT Respiratory Rate 16 07/01/2024 9:16 AM CDT Oxygen Saturation - - Inhaled Oxygen Concentration - - Weight 63.7 kg (140 lb 6.9 oz) 07/01/2024 9:16 A M CDT Height 156.4 cm (5' 1.58) 07/01/2024 9:16 AM CD T Body Mass Index 26.04 07/01/2024 9:16 AM CDT documented in this encounter Progress Notes * Sunday Garay P.A.-C. - 07/01/2024 9:30 AM CDTAssociated Order(s): Large Joint Injection: L subacromial bursa Post-Procedure Diagnose(s): Pain Shoulder Left SUBJECTIVE CHIEF COMPLAINT / REASON FOR VISIT Bhargavi Montoya is a 79 y.o. female who presents for evaluation of Shoulder Pain (Left arm and shoulder pain started a couple of weeks ago. Off and on. Tingling of right hand./Blood pressure runninghigh at times. ). HISTORY OF PRESENT ILLNESS Bhargavi presents today with a couple different issues. She has had some left shoulder pain that has bothered her for quite some time. She does not recall any specific injury but she is frustrated by it. She also has a history of hypertension. This is previously been pretty well controlled she has had some side effects from lisinopril and hydrochlorothiazide. She is currently taking losartan 50 mg a day and tolerating it well. She has a history of coronary artery disease on a CT scan but this wasmoderate. Problem List[1] OBJECTIVE Vitals: 07/01/24 0916 07/01/24 0922 BP: 148/74 146/71 BP Location: Left arm Left arm Patient Position: Sitting Sitting Cuff Size: Regular Regular Pulse: 70 76 Resp: 16 Temp: 36.1 ??C TempSrc: Temporal Weight: 63.7 kg Height: 156.4 cm Body mass index is 26.04 kg/m??. PHYSICAL EXAMINATION In general she appears in no acute distress Left shoulder: She can abduct and flex her shoulder to 90?? but has some discomfort holding it there versus resistance. She has no palpable abnormalities within her axilla. She does have a history ofsome axillary lymphadenopathy but none that seem to be significantly increasing. Trores sign was markedly positive. Neer sign was also positive ASSESSMENT / PLAN #1 Hypertension Essential Primary We talked about her blood pressure. She showed me her readings from home which are suboptimally controlled. I am going to have her double the dose of losartan to 100 mg daily. I am going to see her back in a month and will recheck it at that time in the meantime she will continue checking it at home #2 Pain Shoulder Left We talked about different options for this. I am going to do an x-ray today I would like her to do some physical therapy and I am going to inject her shoulder today. We did talk about more aggressivetreatment doing an MRI and considering orthopedic surgery but for now will continue with conservative management and hopefully she will get some improvement with physical therapy and an injection. Please see separate procedure note Shoulder site - L subacromial bursa Performed by: Sunday Garay, P.A.-C. Authorized by: Sunday Garay, P.A.-C. PROCEDURE DETAILS Procedure Location shoulder Shoulder site: L subacromial bursa Patient position: seated Procedural approach: posterior Needle gauge: 22 G, length: 1 1/2 in Procedural Medication The following medications were administered at the target site(s) Local anesthetic: 4 mL lidocaine 10 mg/mL (1 %) Corticosteroid: 40 mg triamcinolone acetonide 40 mg/mL CONSENT Consent obtained: verbal Consent given by: patient The benefits, risks and alternatives to the procedure and the potential need for sedation or anesthesia as well as the names, roles, and responsibilities of healthcare team members performing significant interventional tasks were discussed with the patient and/or decision maker. UNIVERSAL PROTOCOL All relevant documentation and testing were reviewed and available. All required blood products, implants, devices and or special equipment were made available as applicable. Pre-procedure verification was conducted and the correct site was marked if required. A fire risk and smoke assessment were done as applicable. The procedural time-out to verify correct patient, correct side/site, and procedure was conducted prior to performing the procedure and confirmed in a procedural pause. PRE-PROCEDURE DETAILS Procedure purpose: therapeutic Appropriate hand hygiene, gown, cap, mask, protective eyewear, sterile gloves, skin preparation, sterile drape, and strict aseptic technique were utilized as applicable for the procedure. Site preparation: alcohol and povidone-iodine POST-PROCEDURE DETAILS Procedure completed successfully: yes Complications: no apparent complications Sunday Garay P.A.-C. [1] Patient Active Problem List Diagnosis ??? Hypertension Essential Primary ??? Osteopenia ??? Hyperlipidemia ??? Apnea Sleep Obstructive ??? Lymphadenopathy Axillary ??? Regurgitation Aortic ??? Primary Central Sleep Apnea ??? Diverticulosis documented in this encounter Plan of Treatment Upcoming Encounters Date Type Department Care Team (Late st Contact Info) Description 08/06/2024 1:30 PM CDT Office Visit Department of Family Medicine, [facility], in [address] [address] Sunday Garay P.A.-C. [address] [place] [phone] 09/15/2024 10:45 AM CDT Office Visit Department of Family Medicine, [facility], in [address] [phone] Rosalba Serna M.D. [address] [place] [phone] 12/10/2024 8:40 AM CDT Appointment Department of Laboratory Medicine in [address] [phone] Sunday Garay P.A.-C. [address] [place] [address] 12/10/2024 9:00 AM CDT Appointment Department of Radiology in [address] [phone] Sunday Garay P.A.-C. [address] [place] [phone] 12/11/2024 9:30 AM CDT Office Visit Department of Family Medicine, [facility], in [address] [address] Sunday Garay P.A.-C. [address] [place] [phone] Scheduled Referrals Name Type Priority Associated Diagnoses Orde r Schedule Family Medicine office visit (clinic) Outpatient Referral Routine Expected: 08/02/2024, Expires: 09/30/2025 documented as of this encounter Procedures Procedure Name Priority Date/Time Associated Diagnosis Comments TN ARTHCS ASP/INJ MJR JT WO US Routine 07/01/2024 9:30 AM CDT Pain Shoulder Left documented in this encounter Results * DX Shoulder Left 2+ Views (07/01/2024 10:38 AM CDT) Anatomical Region Laterality Modality Upper Extremity, Shoulder, M usculoskeletal RST LOS, Musculoskeletal ARZ LOS, Muskuloskeletal FLA LOS Left Digit al Radiography Impressions 07/01/2024 11:13 AM CDT Left shoulder: Chronic glenohumeral joint degenerative changes with marked joint space narrowing. Mild acromioclavicular joint degenerative changes. Negative for acute fracture or dislocation. Postsurgical clips in the axilla. Imaged portions of the left lung is unremarkable. Narrative 07/01/2024 11:13 AM CDT EXAM: DX SHOULDER LEFT 2+ VIEWS Procedure Note Forest Saha M.B., Josh Mcelroy - 07/01/2024 EXAM: DX SHOULDER LEFT 2+ VIEWS IMPRESSION: Left shoulder: Chronic glenohumeral joint degenerative changes with markedjoint space narrowing. Mild acromioclavicular joint degenerative changes.Negative for acute fracture or dislocation. Postsurgical clips in theaxilla. Imaged portions of the left lung is unremarkable. us Sunday Garay P.A.-C. IMG DIAGNOSTIC IMAGING PROCEDURES Final Result * TN ARTHCS ASP/INJ MJR JT WO US (07/01/2024 9:30 AM CDT) Narrative MMODAL - 07/01/2024 9:30 AM CDT Sunday Garay P.A.-C. 07/01/2024 11:56 AM Shoulder site - L subacromial bursa Performed by: Sunday Garay P.A.-C. Authorized by: Sunday Garay P.A.-C. PROCEDURE DETAILS Procedure Location shoulder Shoulder site: L subacromial bursa Patient position: seated Procedural approach: posterior Needle gauge: 22 G, length: 1 1/2 in Procedural Medication The following medications were administered at the target site(s) Local anesthetic: 4 mL lidocaine 10 mg/mL (1 %) Corticosteroid: 40 mg triamcinolone acetonide 40 mg/mL CONSENT Consent obtained: verbal Consent given by: patient The benefits, risks and alternatives to the procedure and the potential need for sedation or anesthesia as well as the names, roles, and responsibilities of healthcare team members performing significant interventional tasks were discussed with the patient and/or decision maker. UNIVERSAL PROTOCOL All relevant documentation and testing were reviewed and available. All required blood products, implants, devices and or special equipment were made available as applicable. Pre-procedure verification was conducted and the correct site was marked if required. A fire risk and smoke assessment were done as applicable. The procedural time-out to verify correct patient, correct side/site, and procedure was conducted prior to performing the procedure and confirmed in a procedural pause. PRE-PROCEDURE DETAILS Procedure purpose: therapeutic Appropriate hand hygiene, gown, cap, mask, protective eyewear, sterile gloves, skin preparation, sterile drape, and strict aseptic technique were utilized as applicable for the procedure. Site preparation: alcohol and povidone-iodine POST-PROCEDURE DETAILS Procedure completed successfully: yes Complications: no apparent complications Sunday Garay P.A.-C. PROCEDURE/MINOR SURGIC AL ORDERABLES Final Result [facility] NA documented in this encounter Visit Diagnoses Diagnosis Hypertension Essential Primary- Primary Pain Shoulder Left Pain Shoulder Left documented in this encounter Administered Medications Inactive Administered Medications - up to 3 most recent administrations Medication Order MAR Action Action Date Dose Rate Site lidocaine 10 mg/mL (1 %) injection 4 mL (Xylocaine) 4 mL, injection, One-Time Injection, Starting on Sat07/01/24 at 0930, For 1 doseIndications:Pain Shoulder Left Given 07/01/2024 9:30 AM CDT 4 mL triamcinolone acetonide injection 40 mg (Kenalog-40) 40 mg, intra-articular, One-Time Injection, Starting on Sat07/01/24 at 0930, For 1 doseIndications:Pain Shoulder Left Given 07/01/2024 9:30 AM CDT 40 mg documented in this encounter Additional Health Concerns Assessment Noted Time PHQ-9 Depression Total Score: 0 08/02/19 18 9:18 AM CDT documented as of this encounter Care Teams Plush Cutter Relationship Specialty Start Date End Date Sunday Garay P.A.-C. [address] [place] [address] PCP - General Family Medicine 11/02/19 documented as of this encounter
--- OUTSIDE RECORDS SUMMARY | 2024-07-01 10:21 | XMS_ITS | Encounter Summary ---
Author Organization [facility] Address [address] [place] [address] Care Team Providers Care Supervisor Anodizing Name Role Phone Sunday Garay P.A.-C. Primary Care Provider Reason for Referral * Outpatient (Routine) - Closed Specialty Diagnoses / Procedures Referred By Contac t Referred To Contact Diagnoses Pain Shoulder Left Procedures DX Shoulder Left 2+ Views Sunday Garay P.A.-C. [address] [place] [address] Phone: tel: fax: [facility] Region Referral ID Status Reason Start Date Expiration Date Visits Re quested Visits Authorized [id number] Closed 07/01/2024 10/01/2025 1 1 Reason for Visit * Outpatient (Routine) - Closed Specialty Diagnoses / Procedures Referred By Contedgard t Referred To Contact Diagnoses Pain Shoulder Left Procedures DX Shoulder Left 2+ Views Sunday Garay P.A.-C. [address] [place] [address] Phone: tel: fax: [facility] Region Referral ID Status Reason Start Date Expiration Date Visits Re quested Visits Authorized [id number] Closed 07/01/2024 10/01/2025 1 1 Encounter Details Date Type Department Care Team (Latest Contact Info) Description 07/01/2024 10:21 AM CDT - 07/01/2024 11:59 PM CDT Hospital Encounter Department of Radiology in [place], [place] [address] [facility] [place] [address] Sunday Garay P.A.-C. [address] [facility] [place] [phone] Pain Shoulder Left Discharge Disposition: Home or Self Care Social History Tobacco Use Types Packs/Day Years Used Date Smoking Tobacco: Former Cigarettes 1 20 0 03/11/1966 - 03/11/1986 Smokeless Tobacco: Never Alcohol Use Standard Drinks/Week Comments Never 0 (1 standard drink = 0.6 oz pur e alcohol) [facility] Money [employer] Answer Date Recorded In the past 12 months has e [employer], gas, oil, or water [employer] threatened to shut off services in your [...] week 06/30/2022 How often do you attend [facility] or protestant services? More than 4 times per year 06/30/2022 Do you belong to any clubs o r organizations such as jehovah's witness groups, unions, fraternal or athletic groups, or [...] Date Recorded PHQ-2 Score 1 06/30/2024 [facility] - Occupational Stress [...] your living situation today? I have a [place] place to live 12/02/2023 Education Answer Date Recorded What is the highest level of school you have completed or the highest degree you have received? Some college, no degree 11/03/2018 Comments No Sex and Gender Information Value Date Recorded Sex Assigned at Female 10/24/2019 3:29 PM CDT Legal Sex Female 10:41 PM [employer] Gender Identity Female 10/09/2017 9:13 AM CDT Sexual Orientation Straight 10/09/2017 9: 13 AM CDT documented as of this encounter Medications at Time of Discharge CALCIUM CARB/VIT D3/MINERALS (CALCIUM-VITAMIN D ORAL) Take by mouth daily. 06/30/2009 DIPHENHYDRAMINE HCL ORAL Take 1 capsule by mouth at bedtime. Nighttime Sleep Aid losartan (Cozaar) 100 mg tablet Take 1 tablet (100 mg total) by mouth daily. 90 tablet 3 07/01/2024 metoprolol succinate (Toprol XL) 25 mg 24 hr tablet Take 1 tablet (25 mg total) by mouth daily. Do not crush or chew. 90 tablet 3 12/09/2023 5 MULTIVITAMIN ORAL Take by mouth daily. 06/30/2009 rosuvastatin (Crestor) 20 mg tablet Take 1 tablet (20 mg total) by mouth daily. 90 tablet 3 12/09/2023 5 documented as of this encounter Plan of Treatment Upcoming Encounters Date Type Department Care Team (Late st Contact Info) Description 08/06/2024 1:30 PM CDT Office Visit Department of Family Medicine, [facility], in [place], [place] [address] [place] [phone] Sunday Garay P.A.-C. [address] [place] [address] 09/15/2024 10:45 AM CDT Office Visit Department of Family Medicine, [facility], in [place], [place] [address] [place] [address] Rosalba Serna M.D. [address] [place] [address] 12/10/2024 8:40 AM CDT Appointment Department of Laboratory Medicine in [address] [phone] Sunday Garay, P.A.-C. [address] [place] [phone] 12/10/2024 9:00 AM CDT Appointment Department of Radiology in [address] [phone] Sunday Garay, P.A.-C. [address] [place] [phone] 12/11/2024 9:30 AM CDT Office Visit Department of Family [facility], [facility], in [address] [phone] Sunday Garay, P.A.-C. [address] [place] [phone] documented as of this encounter Procedures Procedure Name Priority Date/Time Associated Diagnosis Comments DX SHOULDER LEFT 2+ VIEWS RAD - Routine (most inpatients and all outpatients) 07/01/2024 10:38 AM CDT Pain Shoulder Left documented in [...] portions of the left lung is unremarkable. Sunday Garay P.A.-C. IMG DIAGNOSTIC IMAGING PROCEDURES Final Result documented in this encounter Visit Diagnoses Diagnosis Pain Shoulder Left documented in this encounter Additional Health Concerns Assessment Noted Time PHQ-9 Depression Total Score: 0 08/02/19 18 9:18 AM CDT documented as of this encounter Care Teams Supervisor Anodizing Relationship Specialty Start Date End Date Sunday Garay P.A.-C. [address] [place] [address] PCP - General Family Medicine 11/02/19 documented as of this encounter
--- OUTSIDE RECORDS SUMMARY | 2024-08-02 22:18 | XMS_ITS | Encounter Summary ---
Author Organization [facility] Address [address] [place] [address] Care Team Providers Care Disk And Tape Machine Tender Name Role Phone Sunday Garay P.A.-C. Primary Care Provider Encounter Details Date Type Department Care Team (Late st Contact Info) Description 07/01/2024 Results Follow-Up Department of Family Medicine, [facility], in [place], [place] [address] [place] [address] Sunday Garay P.A.-C. [address] [place] [address] DX Shoulder Left 2+ Views Social History Tobacco Use Types Packs/Day Years Used Date Smoking Tobacco: Former Cigarettes 1 20 0 03/11/1966 - 03/11/1986 Smokeless Tobacco: Never Alcohol Use Standard Drinks/Week Comments Never 0 (1 standard drink = 0.6 oz pur e alcohol) [facility] Utilities Answer Date Recorded In the past 12 months has e [employer], gas, oil, or water company threatened to shut off services in your home? No 07/31/2024 Humiliation, Afraid, Rape, and Kick questionnair e [...] week 06/30/2022 How often do you attend [facility] or buddhist services? More than 4 times per year 06/30/2022 Do you belong to any clubs o r organizations such as druze groups, unions, fraternal or athletic groups, or [...] Answer Date Recorded PHQ-2 Score 1 06/30/2024 [facility] of Occupat ional Health - Occupational Stress [...] exercise (like a brisk walk)? 6 days 07/31/2024 On average, how many minutes do you engage in exercise at this level? 40 min 07/31/2024 Hunger Vital Sign Answer Date Recorded Within the past 12 months, y ou worried that your food would run out before you got the money to buy more. Never true 08/01/19 25 Within the past 12 months, t he food you bought just didn't last and you didn't have money to get more. Never true 07/31/2024 PRAPARE - Transportation Answer Date Re corded In the past 12 months, has l ack of transportation kept you from medical appointments or from getting medications? No 07/10 In the past 12 months, has l ack of transportation kept you from meetings, work, or from getting things needed for daily living? No 07/31/2024 Nutrition Answer Date Recorded On average, how many serving s of fruits and vegetables do you eat per day (serving size is equal to 1 cup or approximately the size of a tennis ball)? 3-5 07/31/2024 Dental Answer Date Recorded Dental: Regular Dentist Yes 05/02/19 21 Employment Answer Date Recorded Employment status Retired 07/31/2024 Housing Stability Answer Date Recorded What is your living situation today? I have a [facility] place to live 07/31/2024 Education Answer Date Recorded What is the highest level of school you have completed or the highest degree you have received? Some college, no degree 11/03/2018 Comments No Sex and Gender Information Value Date Recorded Sex Assigned at Female 10/24/2019 3:29 PM CDT Legal Sex Female 10:41 PM [employer] Gender Identity Female 10/09/2017 9:13 AM CDT Sexual Orientation Straight 10/09/2017 9: 13 AM CDT documented as of this encounter Plan of Treatment Upcoming Encounters Date Type Department Care Team (Late st Contact Info) Description 08/06/2024 1:30 PM CDT Office Visit Department of Family Medicine, [facility], in [place], [place] [address] [place] [phone] Sunday Garay P.A.-C. [address] [place] [address] 09/15/2024 10:45 AM CDT Office Visit Department of Family Medicine, [facility], in [address] [phone] Rosalba Serna M.D. [address] [place] [phone] 12/10/2024 8:40 AM CDT Appointment Department of Laboratory Medicine in [address] [phone] Sunday Garay P.A.-CNataliia [address] [place] [phone] 12/10/2024 9:00 AM CDT Appointment Department of Radiology in [address] [phone] Sunday Garay P.A.-C. [address] [place] [phone] 12/11/2024 9:30 AM CDT Office Visit Department of Family Medicine, [facility], in [address] [phone] Sunday Garay P.A.-C. [address] [place] [phone] documented as of this encounter Visit Diagnoses Not on filedocumented in this encounter Additional Health Concerns Assessment Noted Time PHQ-9 Depression Total Score: 0 08/02/19 18 9:18 AM CDT documented as of this encounter Care Teams Disk And Tape Machine Tender Relationship Specialty Start Date End Date Sunday Garay P.A.-C. [address] [place] [phone] PCP - General Family Medicine 11/02/19 documented as of this encounter
--- OUTSIDE RECORDS SUMMARY | 2024-08-02 22:18 | XMS_ITS | Encounter Summary ---
Author Organization [facility] Address [address] [place] [id number] Care Team Providers Care Creative Art Director Name Role Phone Sunday GarayANataliia-Ayan Primary Care Provider Reason for Visit * Reason Onset Date Comments PandaDoc Form 07/17/2024 [facility] - 07/07 PT initial eval Encounter Details Date Type Department Care Team (Latest Contact Info) Description 07/17/2024 Clinical Communication Department of Family Medicine, [facility], in [place], [place] [address] [place] [address] Sunday Garay P.A.-CNataliia [address] [place] [phone] Panda[employer] Form ([facility] - 07/07 PT initial eval) Social History Tobacco Use Types Packs/Day Years Used Date Smoking Tobacco: Former Cigarettes 1 20 0 03/11/1966 - 03/11/1986 Smokeless Tobacco: Never Alcohol Use Standard Drinks/Week Comments Never 0 (1 standard drink = 0.6 oz pur e alcohol) [facility] Utilities Answer Date Recorded In the [...] week 06/30/2022 How often do you attend [facility] or buddhist services? More than 4 times per year 06/30/2022 Do you belong to any clubs o r organizations such as confucianist groups, unions, fraternal or athletic groups, or [...] Answer Date Recorded PHQ-2 Score 1 06/30/2024 [facility] of Occupat ional Health - Occupational Stress [...] Date Recorded Dental: Regular Dentist Yes 05/02/19 Employment Answer Date Recorded Employment status Retired 07/17/2023 Housing Stability Answer Date Recorded What is your living situation today? I have a [facility] place to live 12/02/2023 Education Answer Date Recorded What is the highest level of school you have completed or the highest degree you have received? 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 Sent to be scanned into patient chart. * Telephone Encounter - Trena Jerez - 07/17/2024 10:26 AM CDT Form was routed to RADHA Garay for electronic review/signature. PROGRAM MANAGEMENT INTERN: [facility] ( physical therapy ) PHONE NUMBER: na INFO REQUESTED: 07/07 PT initial eval INSTRUCTIONS: Fax information to [phone] documented in this encounter Plan of Treatment Upcoming Encounters Date Type Department Care Team (Late st Contact Info) Description 08/06/2024 1:30 PM CDT Office Visit Department of Family Medicine, [facility], in [address] [phone] Sunday Garay, P.A.-C. [address] [place] [phone] 09/15/2024 10:45 AM CDT Office Visit Department of Family Medicine, [facility], in [place], [place] [address] [place] [phone] Rosalba Serna M.D. [address] [place] [phone] 12/10/2024 8:40 AM CDT Appointment Department of Laboratory Medicine in [address] [phone] Sunday Garay, P.A.-C. [address] [place] [phone] 12/10/2024 9:00 AM CDT Appointment Department of Radiology in [address] [phone] Sunday Garay, P.A.-CNataliia [address] [place] [phone] 12/11/2024 9:30 AM CDT Office Visit Department of Family Medicine, [facility], in [place], [place] [address] [facility] [place] [phone] Sunday Garay P.A.-C. [address] [facility] [place] [phone] documented as of this encounter Visit Diagnoses Not on filedocumented in this encounter Additional Health Concerns Assessment Noted Time PHQ-9 Depression Total Score: 0 08/02/19 18 9:18 AM CDT documented as of this encounter Care Teams Creative Art Director Relationship Specialty Start Date End Date Sunday Garay, PDmearcus. [address] [facility] [place] [place] [phone] PCP - General Family Medicine 11/02/19 documented as of this encounter
--- OUTSIDE RECORDS SUMMARY | 2024-08-02 22:18 | XMS_ITS | Clinical Summary ---
Author Organization [facility] Address [address] [place] [address] Care Team Providers Care Dance Therapist Name Role Phone Sunday Garay P.A.-C. Primary Care Provider Source Comments Patient records contain information from all sites at [facility]. For routine questions regarding patient records, call [phone] during business hours, M-F 8:00 AM - 5:00 PM Central Time. Record requests for emergency care only can be directed to [phone] at any time.[facility] Allergies Active Allergy Reactions Criticality Noted Date Comments Sulfa (Sulfonamide Antibiotics) Other (see comments),GI intolerance 06/30/2009 Cerner listed no reactions Medications * This document contains information received from the source organization and may not represent a complete record from that organization. CALCIUM CARB/VIT D3/MINERALS (CALCIUM-VITAMI N D ORAL) Take by mouth daily. 0 Active MULTIVITAMIN ORAL Take by mouth daily. 0 Active DIPHENHYDRAMINE HCL ORAL Take 1 capsule by mouth at bedtime. Nighttime Sleep Aid Active rosuvastatin (Crestor) 20 mg tablet Take 1 tablet (20 mg total) by mouth daily. 90 tablet 3 4 12/09/19 25 Active metoprolol succinate (Toprol XL) 25 mg 24 hr tablet Take 1 tablet (25 mg total) by mouth daily. Do not crush or chew. 90 tablet 3 4 12/09/19 25 Active losartan (Cozaar) 100 mg tablet Take 1 tablet (100 mg total) by mouth daily. 90 tablet 3 5 Active Active Problems Patient Care Coordination No te Formatting of this note migh t be different from the original. 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 Regurgitation Aortic 01/27/2021 Lymphadenopathy Axillary 02/23/2020 Apnea Sleep Obstructive 05/23/2017 Osteopenia 02/06/2017 Hyperlipidemia 09/12/2016 Hypertension Essential Primary 08/23/2016 Overview (09/25/2016): Hypertension (HTN) NOS Resolved Problems Problem Noted Date Diagnosed Date Resolved Date Diverticulitis 11/11/2020 12/01/2021 Polymyalgia Rheumatica 11/15/200910/25 Overview (07/31/2016): Polymyalgia Rheumatica Encounters Date Type Department Care Team Description 07/17/2024 Clinical Communication Department of [facility], [facility], in [address] [address] Sunday Garay, P.A.-C. [facility] Form ([facility] - 4/ PT initial eval) 07/01/2024 10:21 AM CDT - 07/01/2024 11:59 PM CDT Hospital Encounter Department of Radiology in [address] [address] Sunday Garay, P.A.-C. Pain Shoulder Left Discharge Disposition: Home or Self Care 07/01/2024 9:30 AM CDT Office Visit Department of [facility] Medicine, [facility], in [address] [address] Sunday Garay, P.A.-C. Hypertension Essential Primary (Primary Dx); Pain Shoulder Left 07/01/2024 Results Follow-Up Department of Family Medicine, [facility], in [place] [address] [place] [address] Sunday Garay P.A.-C. DX Shoulder Left 2+ Views from Last 3 Months Immunizations Immunization Administration Dates Next Due HZV (ZOSTAVAX) 05/28/2011,03/11/2010 Influenza high dose QV(65 ye ars or older) (PF) 01/02/2023,01/02/2022,01/27/2021,2019,12/18/2019 Influenza, Seasonal, Injectable 11/16/19 10,12/21/2008,12/17/2007,2006,01/17/2006,01/17/2006 Influenza, Unspecified 12/17/2019,2015,12/27/2014,2012,11/28/2010,11/15/2009 PCV13 05/03/2014 PPSV23 08/17/2009 RZV (SHINGRIX) 06/11/2019,01/17/2019 SARS-COV-2 (COVID-19) - PFIZ ER BIVALENT TS(Discontinued)(12 YEARS OR OLDER) 01/10/2022 Td, (Adult) Unspecified 10/04/2004 Tdap 09/07/2013 influenza trivalent high dos e (HD)(PF) 01/02/2024,12/03/2017,01/14/2017 influenza trivalent vaccine (6 months and older)(PF) 01/16/2012 influenza vaccine QV(FLUBLOK ) (18 years or older) (PF) 12/18/2018 influenza vaccine quad (FLUZONE/FLUARIX) (6 months and older)(PF) 12/18/2018,01/14/2017,01/11/2017,2011,12/21/2008,12/17/2007,01/13/2007,1 03/19/2005 Family History Medical History Relation Name Comments Coronary artery disease Brother 1 Adam Multiple sclerosis Brother 1 Adam Prostate cancer Brother 1 Adam HIV Brother 2 Yash Suicide Brother 2 Yash Suicide Attempts Brother 2 Yash 2008 Asthma Brother 3 Riley Lymphoma Brother 3 Riley Non-Hodgkin lymphoma Brother 3 Riley Prostate cancer Brother 3 Riley Thalassemia Brother 3 Riley Asthma Brother 4 Riley Lymphoma Brother 4 Riley Non-Hodgkin lymphoma Brother 4 Riley Prostate cancer Brother 4 Riley Thalassemia Brother 4 Riley Coronary artery disease Brother 5 Adam Multiple sclerosis Brother 5 Adam Prostate cancer Brother 5 Adam Asthma Brother 6 Riley Thor Hypertension Brother 6 Riley Thor Migraines Brother 7 Yash Thor Suicide Attempts Brother 7 Yash Thor Alcohol abuse Father 1 Nikolai Thor Coronary artery disease Father 1 Nikolai Thor hear t attack Gout Father 1 Nikolai Thor Heart attack Father 1 Nikolai Thor Alcohol abuse Father 2 Nikolai Thor Coronary artery disease Father 2 Nikolai Thor Gout Father 2 Nikolai Thor Heart attack Father 2 Nikolai Thor Acoustic neuroma Mother Reola Thor Anesthesia problems Mother Reola Thor hallucin ations Arthritis Mother Reola Thor Breast cancer Mother Reola Thor 80 years old Cataracts Mother Reola Thor Hypertension Mother Reola Thor Migraines Mother Reola Thor Osteoporosis Mother Reola Thor Other(retired) Mother Reola Thor pulmonary fib rosis Pernicious anemia Mother Reola Thor Pulmonary fibrosis Mother Reola Thor Skin cancer Mother Reola Thor Valvular heart disease Mother Reola Thor Vitamin B12 deficiency Mother Reola Thor Tuberculosis Mother's Brother Adam Frederick Breast cancer Mother's Sister 1 Breast cancer Mother's Sister 2 Tiffany Lopez Tuberculosis Mother's Sister 2 Tiffany Lopez No Known Problems Son 1 Олег Diverticulitis Son 2 Ashish Pyloric stenosis Son 2 Ashish Relation Name Status Comments Brother 1 Adam (Age 64) complicati ons of MS Brother 2 Yash (Age 53) suicide Brother 3 Riley Alive Brother 4 Riley Alive Brother 5 Adam Alive Brother 6 Riley Thor Alive Brother 7 Yash Thor Alive Father 1 Nikolai Thor (Age 65) Father 2 Nikolai Thor Alive Mother Reola Thor (Age 95) Mother's Brother Adam Frederick Alive Mother's Sister 1 Mother's Sister 2 Tiffany Lopez Son 1 Олег Alive Son 2 Ashish Alive Social History Tobacco Use Types Packs/Day Years Used Date Smoking Tobacco: Former Cigarettes 1 20 0 03/11/1966 - 03/11/1986 Smokeless Tobacco: Never Tobacco Cessation:Counseling Given: Not Answered Alcohol Use Standard Drinks/Week Comments Never 0 (1 standard drink = 0.6 oz pur e alcohol) [facility] Utilities Answer Date Recorded In the past 12 months has e [employer], gas, oil, or water [employer] threatened to shut off services in your [...] week 06/30/2022 How often do you attend [facility] or anabaptist services? More than 4 times per year 06/30/2022 Do you belong to any clubs o r organizations such as orthodox groups, unions, fraternal or athletic groups, or [...] Answer Date Recorded PHQ-2 Score 1 06/30/2024 [facility] - [...] your living situation today? I have a [facility] to live 07/31/2024 Education Answer Date Recorded What is the highest level of school you have completed or the highest degree you have received? 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 Gender Identity Female 10/09/2017 9:13 AM CDT Sexual Orientation Straight 10/09/2017 9: 13 AM CDT Last Filed Vital Signs Vital Sign Reading Time Taken Comments Blood Pressure 146/71 07/01/2024 9:22 AM CDT Pulse 76 07/01/2024 9:22 AM CDT Temperature 36.1 C (97 F) 07/01/2024 9:16 AM CDT Respiratory Rate 16 07/01/2024 9:16 AM CDT Oxygen Saturation 96% 11/19/2023 11:06 AM CDT Inhaled Oxygen Concentration - - Weight 63.7 kg (140 lb 6.9 oz) 07/01/2024 9:16 A M CDT Height 156.4 cm (5' 1.58) 07/01/2024 9:16 AM CD T Body Mass Index 26.04 07/01/2024 9:16 AM CDT Plan of Treatment Upcoming Encounters Date Type Department Care Team (Late st Contact Info) Description 08/06/2024 1:30 PM CDT Office Visit Department of Family Medicine, [facility], in [address] [address] Sunday Garay, P.A.-C. [address] [place] [address] 09/15/2024 10:45 AM CDT Office Visit Department of Family Medicine, [facility], in [address] [place] [address] Rosalba Serna M.D. [address] [place] [address] 12/10/2024 8:40 AM CDT Appointment Department of Laboratory Medicine in [address] [address] Sunday Garay, P.A.-C. [address] [place] [address] 12/10/2024 9:00 AM CDT Appointment Department of Radiology in [address] [address] Sunday Garya, P.A.-C. [address] [place] [address] 12/11/2024 9:30 AM CDT Office Visit Department of Family Medicine, [facility], in [place], [place] [address] [facility] [place] [phone] Sunday Garay P.A.-C. [address] [facility] [place] [phone] Health Maintenance Due Date Last Done Comments RSV vaccine - (32-36 weeks) or 60+ years (1 - 1-dose 75+ series) 2019 DTaP,Tdap,and Td Vaccines (2 - Td or Tdap) 09/08/2023 09/07/2013, 10/04/2004 COVID-19 Vaccine ( season) 2023 01/10/2022, 12/10/2020, 05/17/2020, Additional history exists Visit: Medicare Annual Wellness 09/16/2024 09/16/2023 Office Visit for Blood Pressure Check / Re-check 09/30/2024 07/01/2024 Creatinine Level (Kidney Function Test) 12/03/2024 12/04/2023, 11/25/2023, 10/31/2023, Additional history exists Potassium Level 12/03/2024 12/04/2023, 11/09, 12/03/2022, Additional history exists Sodium Level 12/03/2024 12/04/2023, 11/09, 12/03/2022, Additional history exists Visit: Chronic Disease, age 18+ 07/01/2025 07/01/2024 Pneumococcal vaccine (50+ years) Completed 05/03/2014, 08/17/2009 Zoster Vaccines Completed 06/11/2019, 11/2018, 05/28/2011, Additional history exists Hepatitis B Screening Discontinued 02/23/2020 Mammogram Discontinued 12/10/2023, 11/10, 11/28/2021, Additional history exists Influenza Vaccine Completed 01/02/2024, , 01/02/2022, Additional history exists Depression Screening (Annual PHQ-2) Completed 07/01/2024, 06/30/2024 Fall Risk Screen (Annual) Completed 07/01/2024 IPV Vaccines Aged Out No longer eligi ble based on patient's age to complete this topic Medical Devices Implanted Type Area Mainframe Systems Engineer Device Identifier Shelf Expiration Date Model / Serial / Lot Ocular Lens- 5 Implanted:12/10 (Quantity not on file) Ocular Lens Left: Eye Ocular Lens- 5 Implanted:01/09 (Quantity not on file) Ocular Lens Right: Eye Procedures Procedure Name Priority Date/Time Associated Diagnosis Comments DX SHOULDER LEFT 2+ VIEWS RAD - Routine (most inpatients and all outpatients) 07/01/2024 10:38 AM CDT Pain Shoulder Left IN ARTHCS ASP/INJ MJR JT WO US Routine 07/01/2024 9:30 AM CDT Pain Shoulder Left BI BREAST SCREENING BILATERAL WITH TOMOSYNTHESIS RAD - Routine (most inpatients and all outpatients) 12/10/2023 10:09 AM CDT Screening Mammogram Average Risk Patient COMPREHENSIVE METABOLIC PANEL, S/P Routine 12/04/2023 10:29 AM CDT Hypertension Essential Primary Hyperlipidemia HEPATITIS B SURFACE ANTIGEN Routine 02/23/2020 9:27 AM TURNER SPLITTER MACHINE OPERATOR Lymphadenitis Chronic Hyperlipidemia Osteopenia from Last 3 Months or Most Recently Relevant to Health Maintenance Results * DX Shoulder Left 2+ Views [...] IMG DIAGNOSTIC IMAGING PROCEDURES Final Result * IN ARTHCS ASP/INJ MJR JT WO US (07/01/2024 [...] SURGIC AL ORDERABLES Final Result MMODAL NA * BI Breast Screening Bilateral with Tomosynthesis (12/10/2023 10:09 AM CDT) Anatomical Region Laterality Modality Breast, Breast Imaging RST L OS, Breast Imaging ARZ LOS, Breast Imaging FLA LOS Bilateral Mammography Impressions 12/10/2023 10:57 AM CDT Negative. RECOMMENDATION: Annual Screening Mammogram ASSESSMENT: BI-RADS: 1: Negative. Narrative 12/10/2023 10:57 AM CDT EXAM: BI BREAST SCREENING BILATERAL WITH TOMOSYNTHESIS Current study was evaluated with a Computer Aided Detection (CAD) system. INDICATION: Screening mammogram. COMPARISON: Prior exam(s) were available and reviewed for comparison. DENSITY: a. The breast(s) are almost entirely fatty. FINDINGS: No mammographic findings of malignancy. Procedure Note Won Brown M.D. - 12/10/2023 EXAM: BI BREAST SCREENING BILATERAL WITH TOMOSYNTHESIS Current study was evaluated with a Computer Aided Detection (CAD) system. INDICATION: Screening mammogram. COMPARISON: Prior exam(s) were available and reviewed for comparison. DENSITY: a. The breast(s) are almost entirely fatty. FINDINGS: No mammographic findings of malignancy. IMPRESSION: Negative. RECOMMENDATION: Annual Screening Mammogram ASSESSMENT: BI-RADS: 1: Negative. Sunday Garay P.A.-C. IMG BI PROCEDURES Kimmy l Result * (ABNORMAL) Comprehensive Metabolic Panel (12/04/2023 10:29 AM CDT) Potassium, P 4.4 3.6 - 5.2 mmol/L 12/04/2023 1:44 PM CDT OWAT Sodium, P 143 135 - 145 mmol/L 12/04/2023 1:44 PM CDT OWAT Chloride, P 103 98 - 107 mmol/L 12/04/2023 1:44 PM CDT OWAT Bicarbonate, P 31(H) 22 - 29 mmol/L 12/04/2023 1:44 PM CDT OWAT Anion Gap, P 9 7 - 15 12/04/2023 1:44 PM CDT OWAT BUN (Blood Urea Nitrogen), P 9 6 - 21 mg/dL 12/04/2023 1:44 PM CDT OWAT Creatinine 0.99 0.59 - 1.04 mg/dL 12/04/2023 1:44 PM CDT OWAT Estimated GFR (eGFR) 58(L) >=60 mL/min/BS A 12/04/2023 1:44 PM CDT OWAT Comment: Estimated GFR calculated using the 2020 CKD_EPI creatinine equation. Calcium, Total, P 9.8 8.8 - 10.2 mg/dL 12/04/2023 1:44 PM CDT OWAT Glucose, P 105 70 - 140 mg/dL 12/04/2023 1:44 PM CDT OWAT Protein, Total, P 7.1 6.3 - 7.9 g/dL 12/04/2023 1:44 PM CDT OWAT Albumin, P 4.5 3.5 - 5.0 g/dL 12/04/2023 1:44 PM CDT OWAT Aspartate Aminotransferase (AST), P 24 8 - 43 U/L 12/04/2023 1:44 PM CDT OWAT Alkaline Phosphatase, P 80 35 - 104 U/L 12/04/2023 1:44 PM CDT OWAT Alanine Aminotransferase (ALT), P 18 7 - 45 U/L 12/04/2023 1:44 PM CDT OWAT Bilirubin, Total, P 0.8 0.0 - 1.2 mg/dL 12/04/2023 1:44 PM CDT OWAT Blood (Blood, Venous) 12/04/2023 10:29 AM CDT 12/04/2023 1:15 PM CDT Sunday Garay P.A.-C. LAB BLOOD ADD-ON Final Result [facility] [address] [place] [address], [place] [facility] in [place] [address] [place] [address] * Hepatitis B Surface Antigen (02/23/2020 9:27 AM TURNER SPLITTER MACHINE OPERATOR) HBs Antigen, S Negative Negative 02/23/2020 1:17 PM TURNER SPLITTER MACHINE OPERATOR [facility] Blood (Blood, Venous) 02/23/2020 9:27 AM TURNER SPLITTER MACHINE OPERATOR 02/23/2020 12:16 PM TURNER SPLITTER MACHINE OPERATOR us Rogerio Aguayo M.D. LAB MICROBIOLOGY - BLOOD OR DERABLES Final Result [facility] [address] [place] [address] [facility] Dept. of Laboratory Medicine and Pathology [address] 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 See document viewer. Care Teams Dance Therapist Relationship Specialty Start Date End Date Sunday Garay P.A.-C. [address] [place] [phone] PCP - General Family Medicine 11/02/19
--- OUTSIDE RECORDS SUMMARY | 2024-08-02 22:18 | XMS_ITS | Clinical Summary ---
Author Organization [facility] Address [address] [place] [address] Care Team Providers Care Electrical Engineer Name Role Phone Sunday Garay Primary Care Provider [phone] Allergies Active Allergy Reactions Criticality Noted Date Comments Sulfa (Sulfonamide Antibiotics) *Unknown 05/11 Medications triamcinolone 0.5% (ARISTOCORT) 0.5 % cream Apply 1 Applicator topically to affected area(s) 2 times daily. Active simvastatin (ZOCOR) 20 mg tablet Take 20 mg by mouth at bedtime. Active albuterol HFA (PROAIR HFA) 90 mcg/actuation inhaler Inhale 2 Puffs by mouth every 4 hours while awake. Active omeprazole (PRILOSEC) 40 mg Delayed-Releas e capsule Take 40 mg by mouth once daily. Active MULTIVITAMIN ORAL Take 1 tablet by mouth once daily. Active CALCIUM CARB/VIT D3/MINERALS (CALCIUM-VITAM IN D ORAL) Take 1 tablet by mouth once daily. Active ACETAMINOPHEN/ DIPHENHYDRAMIN E (TYLENOL PM ORAL) Take 1-2 tablets by mouth at bedtime if needed. Active IPRATROPIUM BROMIDE NASL Inhale 2 Sprays in the nostril(s) 3 times daily. Active LORATADINE ORAL Take 10 mg by mouth once daily. Active HYDROcodone-ac etaminophen, 5-325 mg, (NORCO) per tablet Take 1-2 tablets by mouth every 4 hours if needed for Pain. Max acetaminophen dose: 4000mg in 24 hrs. 25 tablet 06/09/2014 1:49 PM CDT 5 Active Family History Medical History Relation Name Comments Cancer-breast Maternal Aunt Cancer-breast Mother Relation Name Status Comments Maternal Aunt Mother Social History Tobacco Use Types Packs/Day Years Used Date Smoking Tobacco: Former Alcohol Use Standard Drinks/Week Comments Not Asked 0 (1 standard drink = 0.6 oz pur e alcohol) none Comments No Sex and Gender Information Value Date Recorded Sex Assigned at Not on file Legal Sex Female 4:34 PM CDT Gender Identity Not on file Sexual Orientation Not on file Obstetrics History Last Filed Vital Signs Vital Sign Reading Time Taken Comments Blood Pressure 122/69 06/09/2014 2:30 PM CDT Pulse 66 06/09/2014 2:30 PM CDT Temperature 36.4 C (97.5 F) 06/09/2014 12:05 PM CDT Respiratory Rate 14 06/09/2014 2:30 PM CDT Oxygen Saturation 96% 06/09/2014 2:30 PM CDT Inhaled Oxygen Concentration - - Weight 64.9 kg (143 lb) 06/09/2014 8:10 AM CDT Height 157.5 cm (5' 2) 06/09/2014 8:10 AM CDT Body Mass Index 26.16 06/09/2014 8:10 AM CDT Plan of Treatment Health Maintenance Due Date Last Done Comments Tdap 1955 Depression screening for age 12+ 1956 BMI (ht and wt on same day) for age 18+ 1962 Tetanus booster 1964 Pneumococcal series for age 50+ (1 of 1 - PCV) 1994 Zoster (shingles) series for age 50+ (1 of 2) 1994 DEXA/DXA scan for age 65+ 2009 RSV vaccine for adults or (1 - 1-dose 75+ series) 2019 COVID-19 vaccine series (2 - season) 2023 01/10/2022 Influenza Vaccine (Season Ended) 2024 Hepatitis B series for 19+ Aged Out N o longer eligible based on patient's age to complete this topic Insurance MEDICARE PART A HB ONLY MEDICARE PART B HB ONLY [facility] MEDICARE PB ONLY [facility] MEDICARE PART B HB ONLY Advance Directives * Full Code (Latest Code Status on File) Date Activated Date Inactivated Comments 06/09/2014 7:59 AM 06/09/2014 4:37 PM Care Teams Electrical Engineer Relationship Specialty Start Date End Date Sunday Garay PA PCP - General Physician Resident Surgeon 10/29/19
[2024-08-02 22:26] VITALS: BP 136/93; PULSE 113; RESP 18; TEMP 36.8; O2SAT 97; BMI 24.7
[2024-08-02 23:00] LABS: Lactate* 1.3 mmol/L (0.5-1.9)
[2024-08-02 23:05] LABS: Basophils Absolute Auto 0.01 K/uL (0.00-0.30); Basophils Percent Auto 0.1 % (0.0-3.0); Hematocrit 41.3 % (33.0-51.0); Hemoglobin* 13.8 gm/dL (12.0-16.0); Immature Granulocytes Abs Auto 0.03 K/uL (0.00-0.30); Immature Granulocytes Pct Auto 0.3 %; Lymphocytes Percent Auto 4.9 % (20-44); Mean Corpuscular HGB Conc 33 gm/dL (32-36); Mean Corpuscular Hemoglobin 35 pg (26-34); Mean Corpuscular Volume 104 fL (80-100); Monocytes Percent Auto 7.2 % (0.0-11.0); Neutrophils Percent Auto 87.5 % (42.0-72.0); Platelet Count* 197 K/uL (140-440); RDW Coefficient of Variation % 12.9 % (11.5-15.5); Red Blood Count 3.96 m/uL (4.00-5.20)
[2024-08-02 23:06] LABS: Slide Review Reflex No
--- NOTE | 2024-08-02 23:16 | ED.GENADULT ---
HPI - General Adult General Date Seen: 08/02/24 Chief complaint: Nausea/Vomiting Stated complaint: Vomiting, heart racing Time Seen by Provider: 08/02/24 23:00 History of Present Illness HPI narrative: 79-year-old female with a past medical history polymyalgia rheumatica, sleep apnea, hypertension, and history of diverticulitis presenting to the ER today with nausea, vomiting, and diarrhea. Symptoms started at 3:00 a.m. yesterday morning. She has also had a fever with a temperature max of 100.7 at home. She was so nauseous that she was unable to take her normal daily meds. She has had several episodes of clearish vomit. No bloody vomit. She has also had several episodes of watery brown stool. No bloody or mucousy stool. Throughout the day she has also developed some crampy pain more on the left and left upper quadrant than on the right. She has had a low-grade fever. She has no recent suspicious food. No recent sick contacts. She has not had any antibiotics in the past several months. Related Data Home Medications ?Medication ?Instructions ?Recorded ?Confirmed albuterol sulfate 90 mcg/actuation 1 puff inhalation Q4H PRN 09/06/21 12/14/23 aerosol inhaler multivitamin 1 tab PO DAILY 09/06/21 09/19/23 losartan 50 mg tablet 50 mg PO DAILY 03/20/22 12/14/23 metoprolol succinate 25 mg 25 mg PO DAILY 03/24/23 12/14/23 tablet,extended release 24 hr rosuvastatin 20 mg tablet 20 mg PO DAILY 12/14/23 12/14/23 Previous Rx's ?Medication ?Instructions ?Recorded ondansetron 4 mg disintegrating 4 mg PO Q6H #15 tabs 12/14/23 tablet Allergies Allergy/AdvReac Type Severity Reaction Status Date / Time Sulfa (Sulfonamide AdvReac Intermediate Nausea Verified 09/19/23 09:44 Antibiotics) [facility] Medical History Diverticulitis ?K57.92 - Diverticulitis of intestine, part unspecified, without perforation or abscess without bleeding (ICD-10) Chronic cough ?R05.3 - Chronic cough (ICD-10) Polymyalgia rheumatica ?M35.3 - Polymyalgia rheumatica (ICD-10) Sleep apnea ?G47.30 - Sleep apnea, unspecified (ICD-10) Surgical History History of breast biopsy ?Z98.890 - Other specified postprocedural states (ICD-10) History of trigger finger ?Z87.39 - Personal history of other diseases of the musculoskeletal system and connective tissue (ICD-10) History of carpal tunnel release ?Z98.890 - Other specified postprocedural states (ICD-10) History of laparoscopic cholecystectomy ?Z90.49 - Acquired absence of other specified parts of digestive tract (ICD-10) Social History Smoking Status: Never smoker Do you use any of these nicotine containing products: None Second hand tobacco smoke exposure: No How often do you have a drink containing alcohol: never How often do you have six or more drinks on one occasion: Never AUDIT-C Alcohol total score: 0 Non-prescribed substance use: denies use service: No Exam Narrative: Exam Narrative: Constitutional: Appears well-developed and well-nourished. Alert. Conversant. Non toxic. HENT: Head: Atraumatic. Nose: Nose normal. Mouth/Throat: Oral mucosa is clear but dry. Not desiccated or cracked. no trismus. Pharynx normal. Tonsils symmetric. No tonsillar enlargement, erythema, or exudate. Eyes: Conjunctivae normal. EOM normal. Pupils equal, round, and reactive to light. No scleral icterus. Neck: Normal range of motion. Neck supple. No tracheal deviation present. Cardiovascular: Normal rate, regular rhythm. No gallop. No friction rub. No murmur heard. Symmetric radial artery pulses Pulmonary/Chest: Effort normal. No stridor. No respiratory distress. No wheezes. No rales. No rhonchi . No tenderness. Abdominal: Soft. Bowel sounds normal. No distension. No mass. Left upper and left mid abdominal tenderness. No rebound. No guarding. No CVA tenderness Musculoskeletal: RUE: Normal range of motion. No tenderness. No deformity LUE: Normal range of motion. No tenderness. No deformity RLE: Normal range of motion. No edema. No tenderness. No deformity LLE: Normal range of motion. No edema. No tenderness. No deformity Neurological: Alert and oriented to person, place, and time. Normal strength. CN II-VII intact. No sensory deficit. GCS eye subscore is 4. GCS verbal subscore is 5. GCS motor subscore is 6. Normal coordination Skin: Skin is warm and dry. No rash noted. No pallor. Normal capillary refill. Psychiatric: Normal mood. Normal affect. Const: Vital Signs, click to edit/add: Vital Signs - 24 hr 08/02/24 22:26 08/03/24 01:49 Temperature 98.2 F 98.3 F Pulse Rate [Pulse Oximeter] 113 H 84 Respiratory Rate 18 16 Blood Pressure [Ri t Upper Arm] 136/93 H 125/55 L Pulse Oximetry 97 98 Oxygen Delivery Me thod Room Air Room Air Course Course ED Course: Recheck-heart rate down after IV fluids. Feeling better after Zofran. Still mild pain but feels comfortable. Passed p.o. challenge. Vital Signs Vital signs: Initial Vital Signs Temperature 98.2 F 08/02/24 22:26 Temperature Source Temporal Artery Scan 08/02/24 22:26 Pulse Rate 113 H 08/02/24 22:26 Respiratory Rate 18 08/02/24 22:26 Blood Pressure 136/93 H 08/02/24 22:26 Blood Pressure Mean 107 H 08/02/24 22:26 Blood Pressure Position Sitting 08/02/24 22:26 Pulse Oximetry 97 08/02/24 22:26 Oxygen Delivery Method Room Air 08/02/24 22:26 Vital Signs Temperature 98.2 F 08/02/24 22:26 Pulse Rate 113 H 08/02/24 22:26 Respiratory Rate 18 08/02/24 22:26 Blood Pressure 136/93 H 08/02/24 22:26 Pulse Oximetry 97 08/02/24 22:26 Oxygen Delivery Method Room Air 08/02/24 22:26 Temperature 98.3 F 08/03/24 01:49 Pulse Rate 84 08/03/24 01:49 Respiratory Rate 16 08/03/24 01:49 Blood Pressure 125/55 L 08/03/24 01:49 Pulse Oximetry 98 08/03/24 01:49 Oxygen Delivery Method Room Air 08/03/24 01:49 Medications Administered Medications: Discontinued Medications Generic Name Dose Route Start Last Admin Trade Name Freq PRN Reason Stop Dose Admin Sodium Chloride 1,000 mls @ 1,000 mls/hr 08/02/24 23:30 08/03/24 00:13 0.9 % Sodium Chloride 1000 Ml IV 08/03/24 00:29 Infused .Q1H KEI Infusion Loperamide HCl 4 mg 08/02/24 23:17 08/02/24 23:23 Loperamide Hcl 2 Mg Capsule PO 4 mg ONCE PRN Administration Ondansetron HCl 4 mg 08/02/24 23:17 08/02/24 23:21 Ondansetron 2 Mg/Ml Inj IVP 08/02/24 23:18 4 mg ONCE ONE Administration Medical Decision Making MDM Narrative Medical decision making narrative: Presented to the Emergency Department with nausea, vomiting, diarrhea, and abdominal pain. The differential diagnosis of abdominal pain includes: Appendicitis, Bowel Obstruction, Ulcer, Ischemia, Cholecystitis, Diverticulitis, Pancreatitis, UTI, kidney stone, Enteritis/Colitis, amongst many other etiologies. Patient was in particular concerned because she has a history of diverticulitis and thought that her symptoms might be a related to recurrence of that. Laboratory testing does not reveal a cause for the patient's pain. Bilirubin is mildly elevated at 1.8. Three years ago in August 2021 it was 1.5. ALT is 53. CT imaging is not show diverticulitis, nor does it show other surgical pathology such as obstruction, colitis, appendicitis. There is questionable mesenteric haziness and fat stranding with tiny central mesenteric lymph nodes. These are nonspecific. Possibly related to viral illness. Possibly related to sclerosing mesenteritis. The exact etiology of the abdominal pain is not clear at this time. No life threatening cause or need for emergent surgery or hospital admission is detected today. The patient was advised that if symptoms do not completely resolve within another 12-24 hours re-evaluation with primary care or return to the ED is indicated. The patient also understands that if they worsen, they should return to the ER right away. I discussed the uncertainty about the diagnosis and answered the patient's questions. Abdominal pain return precautions discussed. Lab Data Labs: Lab Results 08/02/24 Range/Units 22:58 WBC 10.00 (4.50-11.00) K/uL RBC 3.96 L (4.00-5.20) m/uL Hgb 13.8 (12.0-16.0) gm/dL Hct 41.3 (33.0-51.0) % MCV 104 H (80-100) fL MCH 35 H (26-34) pg MCHC 33 (32-36) gm/dL RDW Coeff of Yanni 12.9 (11.5-15.5) % Plt Count 197 (140-440) K/uL Neut % (Auto) 87.5 H (42.0-72.0) % Lymph % (Auto) 4.9 L (20-44) % Nolan % (Auto) 7.2 (0.0-11.0) % Eos % (Auto) 0.0 (0.0-7.0) % Baso % (Auto) 0.1 (0.0-3.0) % Neut # (Auto) 8.80 H (1.7-7.0) K/uL Lymph # (Auto) 0.50 L (0.90-2.90) K/uL Nolan # (Auto) 0.70 (0.00-0.90) K/UL Eos # (Auto) 0.00 (0.00-0.50) K/uL Baso # (Auto) 0.01 (0.00-0.30) K/uL Abs Immat Gran (auto) 0.03 (0.00-0.30) K/uL Imm/Tot Granulo (auto) 0.3 % Sodium 136 (135-149) mmol/L Potassium 4.0 (3.6-5.1) mmol/L Chloride 104 (96-114) mmol/L Carbon Dioxide 23 (20-32) mmol/L Anion Gap 9 (7-15) mEq/L BUN 19 (7-30) mg/dL Creatinine 1.0 (0.5-1.5) mg/dL Estimated Creat Clear 35.49 Estimated GFR 57 ml/min Glucose 129 H (60-115) mg/dL Lactate 1.3 (0.5-1.9) mmol/L Calcium 8.9 (8.4-10.6) mg/dL Total Bilirubin 1.8 H (0.1-1.5) mg/dL AST 32 (12-35) U/L ALT 53 H (4-35) U/L Alkaline Phosphatase 62 (40-150) U/L Total Protein 6.9 (6.0-8.3) g/dL Albumin 4.3 (3.3-5.0) g/dL Imaging Data CT scan - abdomen: Attestation: I have reviewed the pertinent imaging results. Radiologist's impression: IMPRESSION: 1. Very mild central mesenteric haziness/fat stranding with several associated tiny central mesenteric lymph nodes, new compared to prior. These findings are nonspecific but may be seen in the setting of sclerosing mesenteritis. 2. Prominent colonic diverticulosis without acute diverticulitis. 3. Prominent pelvic venous vasculature, nonspecific, may be seen in the setting of pelvic congestion syndrome. Discharge Plan Discharge Clinical Impression: Abdominal pain, vomiting, and diarrhea Patient Disposition: Home, Self-Care Condition: Stable Instructions: Acute Nausea and Vomiting (DC), Acute Diarrhea (ED), Abdominal Pain (ED) Additional Instructions: As we discussed, please use the Zofran if needed help treat your nausea. Try to drink fluids and stay hydrated. Try to take your regular medications. You can add solid foods when you start to feel better. Please monitor your symptoms carefully and if you have worsening symptoms or uncontrolled vomiting, diarrhea, worsening pain, fever, elevated heart rate, please return to the ER right away. If you not completely improved within 24 hours, please recheck with your regular doctor, or come back to the ER for re-evaluation. Prescriptions: No Action losartan 50 mg tablet 50 mg PO DAILY albuterol sulfate 90 mcg/actuation HFA aerosol inhaler 1 puff INHALATION Q4H PRN Patient Comments: INHALE TWO PUFFS BY MOUTH EVERY FOUR HOURS NEEDED FOR WHEEZING multivitamin Tablet 1 tab PO DAILY metoprolol succinate 25 mg tablet extended release 24 hr 25 mg PO DAILY rosuvastatin 20 mg tablet 20 mg PO DAILY ondansetron 4 mg tablet,disintegrating 4 mg PO Q6H Qty: 15 0RF Follow Up/Referrals: Sunday Garay PA-C [Primary Care Provider, Family Practice] Stand Alone Forms: [facility] Info Instructions
[2024-08-02 23:21] LABS: Chloride* 104 mmol/L (96-114)
[2024-08-02] MEDS: ONDANSETRON 2 MG/ML inj 4 MG IVP (23:21)
[2024-08-02] MEDS: 0.9 % SODIUM CHLORIDE 1000 ml 1,000 ML IV (23:21)
[2024-08-02 23:22] LABS: Albumin* 4.3 g/dL (3.3-5.0); Sodium* 136 mmol/L (135-149)
[2024-08-02] MEDS: LOPERAMIDE HCL 2 MG CAPSULE 4 MG PO (23:23)
[2024-08-02 23:24] LABS: Alanine Aminotransferase* 53 U/L (4-35); Anion Gap 9 mEq/L (7-15); Aspartate Amino Transferase* 32 U/L (12-35); Blood Urea Nitrogen* 19 mg/dL (7-30); Carbon Dioxide* 23 mmol/L (20-32); Est. Creatinine Clearance* 35.49; Estimated Glomerular Filt Rate 57 ml/min
[2024-08-02 23:25] LABS: Alkaline Phosphatase* 62 U/L (40-150); Bilirubin Total* 1.8 mg/dL (0.1-1.5); Calcium* 8.9 mg/dL (8.4-10.6); Glucose* 129 mg/dL (60-115); Total Protein* 6.9 g/dL (6.0-8.3)
--- NOTE | 2024-08-03 | CRLHL7_ITS ---
For Patients: As a result of the Century Cures Act, medical imaging exams and procedure reports are released immediately into your electronic medical record. You may view this report before your referring provider. If you have questions, please contact your health care provider. INDICATION: Left upper quadrant/epigastric abdominal pain with vomiting and diarrhea. TECHNIQUE: CT abdomen and pelvis acquired with 66 cc Isovue 370 IV contrast. COMPARISON: CT abdomen and pelvis 09/06/2021. FINDINGS: Lower chest: Mild subpleural nodularity at the lung bases, grossly unchanged. Bibasilar atelectasis. Liver: Unremarkable. Gallbladder and bile ducts: Cholecystectomy with mild intrahepatic and extrahepatic biliary dilatation, improved compared to the prior exam, and likely secondary to reservoir effect. Pancreas: Unremarkable. Spleen: Unremarkable. Adrenal glands: Unremarkable. Kidneys: Symmetric renal enhancement. No hydronephrosis or hydroureter. No urinary calculi. GI tract: Colonic diverticulosis without acute diverticulitis. No suspicious bowel wall thickening. No CT evidence of acute appendicitis. Vasculature: Atherosclerotic vascular calcifications. No abdominal aortic aneurysm. Grossly patent vasculature. Prominent pelvic venous vasculature. Lymph nodes: No suspicious lymphadenopathy. Several tiny central mesenteric lymph nodes. Peritoneum/Abdominal Wall: Very mild central mesenteric haziness/fat stranding, new compared to prior. No ascites or pneumoperitoneum. No acute abdominal wall abnormality. Pelvis: Normal bladder. No suspicious adnexal mass. Bones: No acute abnormality. Chronic T11 superior endplate compression fracture. IMPRESSION: 1. Very mild central mesenteric haziness/fat stranding with several associated tiny central mesenteric lymph nodes, new compared to prior. These findings are nonspecific but may be seen in the setting of sclerosing mesenteritis. 2. Prominent colonic diverticulosis without acute diverticulitis. 3. Prominent pelvic venous vasculature, nonspecific, may be seen in the setting of pelvic congestion syndrome. Please note that all CT scans at this facility use dose modulation, iterative reconstruction, and/or weight-based dosing when appropriate to reduce radiation dose to as low as reasonably achievable. Dictated by Jared Sierra MD @ 08/03/2024 1:11:28 AM (Electronically Signed)
[2024-08-03 01:49] VITALS: BP 125/55; PULSE 84; RESP 16; TEMP 36.8; O2SAT 98
== END 2024-08-03 02:19 | disposition home or self-care (01) ==
PROVIDERS: Emergency Provider Emergency Medicine; PCP Physician Assistant
DX: R11.10 Vomiting, unspecified (principal); R19.7 Diarrhea, unspecified; R10.9 Unspecified abdominal pain
CPT/HCPCS: 36415; 74177; 80053; 83605; 85025; 96374; 99283; 99284; 99285; A9270; J2405; J7030; Q9967

== ENCOUNTER 2024-08-13 21:29 | Outpatient (CLI) | payer MEDICARE, BC, SELFPAY | END 2024-08-13 21:30 | disposition home or self-care (01) | LOC: AMB 08-14 10:29 | PROVIDERS: PCP Physician Assistant; Visit Provider Family Medicine | DX: R42 Dizziness and giddiness (principal); I49.9 Cardiac arrhythmia, unspecified | CPT/HCPCS: A0425; A0427 ==

== ENCOUNTER 2024-08-13 22:01 | Emergency (ER) | payer MEDICARE, BC, SELFPAY ==
[2024-08-13 22:04] VITALS: BP 145/69; PULSE 63; RESP 16; TEMP 35.7; O2SAT 98; BMI 24.7
--- OUTSIDE RECORDS SUMMARY | 2024-08-13 22:04 | XMS_ITS | Clinical Summary ---
Author Organization [facility] Address [address] [place] [id number] Care Team Providers Care Field Support Representative Name Role Phone Sunday Garay Primary Care Provider [phone] Allergies Active Allergy Reactions Criticality Noted Date [...] HB ONLY MEDICARE PART B HB ONLY [facility] MEDICARE PB ONLY [facility] MEDICARE PART B HB ONLY Advance Directives * Full Code (Latest Code Status on File) Date Activated Date Inactivated Comments 06/09/2014 7:59 AM 06/09/2014 4:37 PM Care Teams Field Support Representative Relationship Specialty Start Date End Date Sunday Garay PA PCP - General Physician [employer] 10/29/19
--- NOTE | 2024-08-13 22:17 | ED.DIZZY ---
HPI - Dizziness General Chief Complaint: Dizziness/Vertigo Stated Complaint: Racing heart, dizziness Time Seen by Provider: 08/13/24 22:11 History of Present Illness HPI Narrative: Patient is an 79-year-old woman who presents with lightheadedness and palpitations that began approximately 2 hours ago. Patient was in her normal resting state when she suddenly felt dizzy weak and felt like her heart was beating very hard. Patient was seen approximately a week ago here in the emergency room for gastroenteritis and on largely unremarkable workup. She has had no bruising or bleeding. No abdominal pain. She is nauseous but has had no vomiting. She has had no neurologic symptoms and no longer feels dizzy but does feel weak. No other related symptoms. Related Data Home Medications ?Medication ?Instructions ?Recorded ?Confirmed albuterol sulfate 90 mcg/actuation 1 puff inhalation Q4H PRN 09/06/21 08/13/24 aerosol inhaler multivitamin 1 tab PO DAILY 09/06/21 08/13/24 losartan 50 mg tablet 50 mg PO DAILY 03/20/22 08/13/24 metoprolol succinate 25 mg 25 mg PO DAILY 03/24/23 08/13/24 tablet,extended release 24 hr rosuvastatin 20 mg tablet 20 mg PO DAILY 12/14/23 08/13/24 Previous Rx's ?Medication ?Instructions ?Recorded ondansetron 4 mg disintegrating 4 mg PO Q6H #15 tabs 12/14/23 tablet Allergies Allergy/AdvReac Type Severity Reaction Status Date / Time Sulfa (Sulfonamide AdvReac Intermediate Nausea Verified 08/13/24 22:09 Antibiotics) Review of Systems Status of ROS: Reports: 10 or more systems reviewed and unremarkable except as noted in History and below [facility] Medical History Diverticulitis ?K57.92 - Diverticulitis of intestine, part unspecified, without perforation or abscess without bleeding (ICD-10) Chronic cough ?R05.3 - Chronic cough (ICD-10) Polymyalgia rheumatica ?M35.3 - Polymyalgia rheumatica (ICD-10) Sleep apnea ?G47.30 - Sleep apnea, unspecified (ICD-10) Surgical History History of breast biopsy ?Z98.890 - Other specified postprocedural states (ICD-10) History of trigger finger ?Z87.39 - Personal history of other diseases of the musculoskeletal system and connective tissue (ICD-10) History of carpal tunnel release ?Z98.890 - Other specified postprocedural states (ICD-10) History of laparoscopic cholecystectomy ?Z90.49 - Acquired absence of other specified parts of digestive tract (ICD-10) Social History Smoking Status: Never smoker Do you use any of these nicotine containing products: None Second hand tobacco smoke exposure: No How often do you have a drink containing alcohol: never How often do you have six or more drinks on one occasion: Never AUDIT-C Alcohol total score: 0 Non-prescribed substance use: denies use service: No Exam Narrative: Exam Narrative: EXAM GENERAL: Patient appears slightly diaphoretic. EYES: No scleral icterus. LYMPH: No supraclavicular or cervical lymphadenopathy. SKIN: Visible skin seen during exam normal or with benign process only. EXT: No dependent lower extremity pedal edema. HEART: Regular rate and rhythm with no murmurs, rubs, or gallops. LUNGS: Clear to auscultation bilaterally with no crackles or wheezes. ABD: Soft, non tender, non distended. PSYCH: Good eye contact, speech is not pressured. Const: Vital Signs, click to edit/add: Vital Signs - 24 hr 08/13/24 22:04 Temperature 96.2 F L Pulse Rate [Pulse Oximeter] 63 Respiratory Rate 16 Blood Pressure [Ri ght Upper Arm] 145/69 H Pulse Oximetry 98 Oxygen Delivery Me thod Room Air Course Course ED Course: Patient seen and examined. Normal saline 500 mL given 4 mg of Zofran given CBC comprehensive metabolic panel troponin D-dimer EKG pending. Vital Signs Vital signs: Initial Vital Signs Temperature 96.2 F L 08/13/24 22:04 Temperature Source Temporal Artery Scan 08/13/24 22:04 Pulse Rate 63 08/13/24 22:04 Respiratory Rate 16 08/13/24 22:04 Blood Pressure 145/69 H 08/13/24 22:04 Blood Pressure Mean 94 08/13/24 22:04 Pulse Oximetry 98 08/13/24 22:04 Oxygen Delivery Method Room Air 08/13/24 22:04 Vital Signs Temperature 96.2 F L 08/13/24 22:04 Pulse Rate 63 08/13/24 22:04 Respiratory Rate 16 08/13/24 22:04 Blood Pressure 145/69 H 08/13/24 22:04 Pulse Oximetry 98 08/13/24 22:04 Oxygen Delivery Method Room Air 08/13/24 22:04 Temperature 96.2 F L 08/13/24 22:04 Pulse Rate 63 08/13/24 22:04 Respiratory Rate 16 08/13/24 22:04 Blood Pressure 145/69 H 08/13/24 22:04 Pulse Oximetry 98 08/13/24 22:04 Oxygen Delivery Method Room Air 08/13/24 22:04 Medications Administered Medications: Generic Name Dose Route Start Last Admin Trade Name Freq PRN Reason Stop Dose Admin Ondansetron HCl 4 mg 08/13/24 22:16 08/13/24 22:51 Ondansetron 2 Mg/Ml Inj IVP 4 mg ONCE PRN Administration Discontinued Medications Generic Name Dose Route Start Last Admin Trade Name Freq PRN Reason Stop Dose Admin Sodium Chloride 500 mls @ 500 mls/hr 08/13/24 22:16 08/13/24 22:34 0.9 % Sodium Chloride 500 Ml IV 08/13/24 23:15 500 mls/hr .Q1H ONE Administration MDM - Dizziness MDM Narrative Medical decision making narrative: Patient presents with an episode of weakness occurred 2 hours prior to admission to the ER. She had a negative EKG negative troponin negative D-dimer unremarkable electrolytes. She was here approximately 2 weeks ago and her hemoglobin has dropped approximately 2 g since that time but she has had no signs of bleeding. Hemoglobin is still very much stable at 11.5. Did give her 500 mL of normal saline 4 mg of Zofran and she feels much better. This time I did recommend close outpatient follow-up. Lab Data Labs: Lab Results 08/13/24 Range/Units 22:43 WBC 9.87 (4.50-11.00) K/uL RBC 3.41 L (4.00-5.20) m/uL Hgb 11.6 L (12.0-16.0) gm/dL Hct 35.3 (33.0-51.0) % MCV 104 H (80-100) fL MCH 34 (26-34) pg MCHC 33 (32-36) gm/dL RDW Coeff of Yanni 12.7 (11.5-15.5) % Plt Count 232 (140-440) K/uL Neut % (Auto) 77.8 H (42.0-72.0) % Lymph % (Auto) 14.6 L (20-44) % Payette % (Auto) 5.7 (0.0-11.0) % Eos % (Auto) 0.8 (0.0-7.0) % Baso % (Auto) 0.3 (0.0-3.0) % Neut # (Auto) 7.70 H (1.7-7.0) K/uL Lymph # (Auto) 1.40 (0.90-2.90) K/uL Payette # (Auto) 0.60 (0.00-0.90) K/UL Eos # (Auto) 0.08 (0.00-0.50) K/uL Baso # (Auto) 0.03 (0.00-0.30) K/uL Abs Immat Gran (auto) 0.08 (0.00-0.30) K/uL Imm/Tot Granulo (auto) 0.8 % D-Dimer Quant (PE/DVT) 0.10 (0.00-0.50) ug/ml Sodium 138 (135-149) mmol/L Potassium 3.7 (3.6-5.1) mmol/L Chloride 107 (96-114) mmol/L Carbon Dioxide 25 (20-32) mmol/L Anion Gap 6 L (7-15) mEq/L BUN 13 (7-30) mg/dL Creatinine 1.0 (0.5-1.5) mg/dL Estimated Creat Clear 35.49 Estimated GFR 57 ml/min Glucose 135 H (60-115) mg/dL Calcium 8.8 (8.4-10.6) mg/dL Total Bilirubin 0.9 (0.1-1.5) mg/dL AST 29 (12-35) U/L ALT 30 (4-35) U/L Alkaline Phosphatase 90 (40-150) U/L Troponin I < 0.01 (0.01-0.04) ng/mL Total Protein 6.4 (6.0-8.3) g/dL Albumin 3.9 (3.3-5.0) g/dL Discharge Plan Discharge Clinical Impression: Weakness Patient Disposition: Home, Self-Care Condition: Stable Instructions: Weakness (ED) Additional Instructions: continue current care. Follow-up with your doctor early next week. Activity Level: No Restrictions Discharge Diet: Regular Prescriptions: No Action losartan 50 mg tablet 50 mg PO DAILY albuterol sulfate 90 mcg/actuation HFA aerosol inhaler 1 puff INHALATION Q4H PRN Patient Comments: INHALE TWO PUFFS BY MOUTH EVERY FOUR HOURS NEEDED FOR WHEEZING multivitamin Tablet 1 tab PO DAILY metoprolol succinate 25 mg tablet extended release 24 hr 25 mg PO DAILY rosuvastatin 20 mg tablet 20 mg PO DAILY ondansetron 4 mg tablet,disintegrating 4 mg PO Q6H Qty: 15 0RF Follow Up/Referrals: Sunday Garay PA-C [Primary Care Provider, Family Practice] Stand Alone Forms: [facility] Info Instructions
[2024-08-13] MEDS: 0.9 % SODIUM CHLORIDE 500 ML 500 ML IV (22:34)
[2024-08-13 22:48] LABS: Basophils Absolute Auto 0.03 K/uL (0.00-0.30); Basophils Percent Auto 0.3 % (0.0-3.0); Eosinophils Absolute Auto 0.08 K/uL (0.00-0.50); Eosinophils Percent Auto 0.8 % (0.0-7.0); Hematocrit 35.3 % (33.0-51.0); Hemoglobin* 11.6 gm/dL (12.0-16.0); Immature Granulocytes Abs Auto 0.08 K/uL (0.00-0.30); Immature Granulocytes Pct Auto 0.8 %; Lymphocytes Percent Auto 14.6 % (20-44); Mean Corpuscular HGB Conc 33 gm/dL (32-36); Mean Corpuscular Hemoglobin 34 pg (26-34); Mean Corpuscular Volume 104 fL (80-100); Monocytes Percent Auto 5.7 % (0.0-11.0); Neutrophils Percent Auto 77.8 % (42.0-72.0); Platelet Count* 232 K/uL (140-440); RDW Coefficient of Variation % 12.7 % (11.5-15.5); Red Blood Count 3.41 m/uL (4.00-5.20); White Blood Count* 9.87 K/uL (4.50-11.00)
[2024-08-13 22:50] LABS: Slide Review Reflex No
[2024-08-13] MEDS: ONDANSETRON 2 MG/ML inj 4 MG IVP (22:51)
[2024-08-13 23:02] LABS: Albumin* 3.9 g/dL (3.3-5.0); Chloride* 107 mmol/L (96-114)
[2024-08-13 23:03] LABS: Potassium* 3.7 mmol/L (3.6-5.1); Sodium* 138 mmol/L (135-149)
[2024-08-13 23:05] LABS: Alanine Aminotransferase* 30 U/L (4-35); Anion Gap 6 mEq/L (7-15); Aspartate Amino Transferase* 29 U/L (12-35); Blood Urea Nitrogen* 13 mg/dL (7-30); Carbon Dioxide* 25 mmol/L (20-32); Est. Creatinine Clearance* 35.49; Estimated Glomerular Filt Rate 57 ml/min
[2024-08-13 23:06] LABS: Alkaline Phosphatase* 90 U/L (40-150); Bilirubin Total* 0.9 mg/dL (0.1-1.5); Calcium* 8.8 mg/dL (8.4-10.6); Glucose* 135 mg/dL (60-115); Total Protein* 6.4 g/dL (6.0-8.3)
[2024-08-13 23:19] LABS: Troponin I* < 0.01 ng/mL (0.01-0.04)
== END 2024-08-13 23:59 | disposition home or self-care (01) ==
PROVIDERS: Emergency Provider Internal Medicine; PCP Physician Assistant
DX: R53.1 Weakness (principal); R42 Dizziness and giddiness; R00.2 Palpitations
CPT/HCPCS: 36415; 80053; 84484; 85025; 85379; 93005; 96361; 96374; 99283; 99284; J2405; J7030